=== PATIENT | male | born 1975 | race Caucasian/White ===

== ENCOUNTER 2016-03-16 04:57 | Emergency (ER) | payer MEDICAID ==
[2016-03-16] MEDS ORDERED: HYDROmorphONE/DILAUDID 1 MG/ML SYR ONE (05:17)
[2016-03-16] MEDS ORDERED: ONDANSETRON 4 MG/2 ML VIAL ONE (05:17)
[2016-03-16] MEDS ORDERED: ONDANSETRON 4 MG/2 ML VIAL IVP ONE (05:23)
[2016-03-16] MEDS ORDERED: HYDROmorphONE/DILAUDID 1 MG/ML SYR IVP ONE (05:23)
[2016-03-16] MEDS ORDERED: NS 1,000 ML IV ONE ×2 (05:24→05:47)
[2016-03-16 05:34] LABS: % IMMATURE GRANULYOCYTES 0.1 % (0.0-1.1); ABSOLUTE IMMATURE GRANULOCYTES 0.01 10^3/uL (0.00-0.10); ADD DIFF? NO; ADD MORPH? NO; ADD SCAN? NO; ATYPICAL LYMPHOCYTE FLAG 10 (0-99); FRAGMENT RBC FLAG 0 (0-99); HEMATOCRIT 47.9 % (40.0-51.0); HEMOGLOBIN 17.2 g/dL (13.7-17.5); LEFT SHIFT FLG 0 (0-99); LIPEMIA HEMOLYSIS FLAG 90 (0-99); MEAN CELL HEMOGLOBIN CONCENTR. 35.9 g/dL (32.4-36.7); PLATELET CLUMPS FLAG 0 (0-99); PLATELET COUNT 150 10^3/uL (150-400); RED BLOOD CELL COUNT 5.38 10^6/uL (4.40-6.38)
[2016-03-16 05:46] LABS: ANION GAP 8 mEq/L (8-16); CALCIUM 9.5 mg/dL (8.5-10.4); CARBON DIOXIDE 27 mEq/l (22-31); CHLORIDE 107 mEq/L (97-110); CREATININE 0.9 mg/dL (0.7-1.3); GLOMERULAR FILTRATION RATE > 60; GLUCOSE 103 mg/dL (70-100); POTASSIUM 5.3 mEq/L (3.5-5.2); SODIUM 142 mEq/L (134-144)
[2016-03-16] MEDS ORDERED: HYDROmorphONE/DILAUDID 1 MG/ML SYR IVP PRN (05:47)
[2016-03-16] MEDS ORDERED: KETOROLAC 30 MG/1 ML SDV IVP ONE (05:47)
[2016-03-16 06:11] LABS: COLOR YELLOW; LEUKOCYTE ESTERASE,URINE NEGATIVE (NEGATIVE); NITRITE,URINE NEGATIVE (NEGATIVE)
--- NOTE | 2016-03-16 06:29 | EDPHY ---
H & P Stated Complaint: pt says he woke up with severe mid R back pain Time Seen by Provider: 03/16/16 05:41 HPI/ROS: HPI The patient presents with right-sided back pain which awoke him from sleep tonight. The pain is sharp, radiates forward to his abdomen, and is moderate in severity. He has no prior history of similar. He does not have any dysuria , hematuria that he is aware of. He has not had any fevers or chills. 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 REVIEW OF SYSTEMS Constitutional: No fever, no chills. Eyes: No discharge. ENT: No sore throat. Cardiovascular: No chest pain, no palpitations. Respiratory: No cough, no shortness of breath. Gastrointestinal: No abdominal pain, no vomiting. Genitourinary: No hematuria. Musculoskeletal: Right-sided flank pain Skin: No rashes. Neurological: No headache. 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, smoking history PHYSICAL General Appearance: Alert, no distress Eyes: Pupils equal and round no pallor or injection ENT, Mouth: Mucous membranes moist Respiratory: There are no retractions, lungs are clear to auscultation Cardiovascular: Regular rate and rhythm Gastrointestinal: Abdomen is soft and non-tender, no masses, bowel sounds normal Back: No flank tenderness, no posterior midline tenderness Neurological: A&O, moves all extremities Skin: Warm and dry, no rashes Musculoskeletal: Neck is supple non tender Extremities: symmetrical, full range of motion Psychiatric: Patient is oriented X 3, there is no agitation Source: Patient Exam Limitations: No limitations - Medical/Surgical History Hx Asthma: No Hx Chronic Respiratory Disease: No Hx Diabetes: No Hx Cardiac Disease: No Hx Renal Disease: No Hx Cirrhosis: No Hx Alcoholism: No Hx HIV/AIDS: No Hx Splenectomy or Spleen Trauma: No Other PMH: PMH- HEP C, adhd, bipolar. PSH- DEYVI - Social History Smoking Status: Current every day smoker Constitutional: Initial Vital Signs Temperature (C) 36.7 C 03/16/16 05:01 Heart Rate 86 03/16/16 05:01 Respiratory Rate 20 03/16/16 05:01 Blood Pressure 111/99 H 03/16/16 05:01 O2 Sat (%) 97 03/16/16 05:01 O2 Delivery Mode Room Air Allergies/Adverse Reactions: No Known Allergies Allergy (Verified 03/16/16 05:03) Home Medications: Medication Instructions Recorded Hydrocodone/APAP 5/325 [Shadyside 1 tab PO Q4 PRN #15 tab 10/24/13 5/325 (RX)] oxyCODONE/APAP 5/325 [Percocet 1 tab PO Q6 #10 tab 06/02/14 5/325] ADDERALL 15 MG TABLET 03/16/16 LaMICtal 03/16/16 Medical Decision Making - Diagnostics Imaging: CT scan abdomen pelvis without contrast demonstrates mild fat stranding around the right kidney with no signs of kidney stone, discussed with Dr. Longo of Radiology. ED Course/Re-evaluation: The patient was given 2 L of IV fluid, Dilaudid, Toradol with complete resolution of his symptoms and felt much better. Labs have resulted and are all unremarkable including UA. CT scan performed shows no kidney stone with mild stranding around his right kidney. He could have passed a kidney stone or have had musculoskeletal pain and I have explained this to him. He will be discharged from the emergency room with a pill pack for Shadyside and instructions for rest and ice. He should return to the emergency room if he is worse in any way. Differential Diagnosis: This is a 40-year-old male who is status post cholecystectomy who presents from home with several hours of right-sided flank pain which awoke him from sleep with no other symptoms. Differential diagnosis includes nephrolithiasis, pyelonephritis, less likely musculoskeletal pain. - Data Points Laboratory Results: Laboratory Results 03/16/16 05:15 03/16/16 05:15 03/16/16 03/16/16 05:57 05:15 WBC 7.62 10^3/uL (3.80-9.50) RBC 5.38 10^6/uL (4.40-6.38) Hgb 17.2 g/dL (13.7-17.5) Hct 47.9 % (40.0-51.0) MCV 89.0 fL (81.5-99.8) MCH 32.0 pg (27.9-34.1) MCHC 35.9 g/dL (32.4-36.7) RDW 12.0 % (11.5-15.2) Plt Count 150 10^3/uL (150-400) MPV 10.0 fL (8.7-11.7) Neut % (Auto) 61.7 % (39.3-74.2) Lymph % (Auto) 26.6 % (15.0-45.0) [place] % (Auto) 9.8 % (4.5-13.0) Eos % (Auto) 1.4 % (0.6-7.6) Baso % (Auto) 0.4 % (0.3-1.7) Nucleat RBC Rel Count 0.0 % (0.0-0.2) Absolute Neuts (auto) 4.69 10^3/uL (1.70-6.50) Absolute Lymphs (auto) 2.03 10^3/uL (1.00-3.00) Absolute Monos (auto) 0.75 10^3/uL (0.30-0.80) Absolute Eos (auto) 0.11 10^3/uL (0.03-0.40) Absolute Basos (auto) 0.03 10^3/uL (0.02-0.10) Absolute Nucleated RBC 0.00 10^3/uL (0-0.01) Immature Gran % 0.1 % (0.0-1.1) Immature Gran # 0.01 10^3/uL (0.00-0.10) Sodium 142 mEq/L (134-144) Potassium 5.3 H mEq/L (3.5-5.2) Chloride 107 mEq/L (97-110) Carbon Dioxide 27 mEq/l (22-31) Anion Gap 8 mEq/L (8-16) BUN 22 mg/dL (7-23) Creatinine 0.9 mg/dL (0.7-1.3) Estimated GFR > 60 Glucose 103 H mg/dL (70-100) Calcium 9.5 mg/dL (8.5-10.4) Urine Color YELLOW Urine Appearance CLEAR Urine pH 5.0 (5.0-7.5) Ur Specific [place] 1.012 (1.002-1.030) Urine Protein NEGATIVE (NEGATIVE) Urine Ketones NEGATIVE (NEGATIVE) Urine Blood NEGATIVE (NEGATIVE) Urine Nitrate NEGATIVE (NEGATIVE) Urine Bilirubin NEGATIVE (NEGATIVE) Urine Urobilinogen NEGATIVE EU (0.2-1.0) Ur Leukocyte Esterase NEGATIVE (NEGATIVE) Urine RBC 1-3 /hpf (0-3) Urine WBC 1-3 /hpf (0-3) Ur Epithelial Cells Not Reported Urine Glucose NEGATIVE (NEGATIVE) Medications Given: Discontinued Medications Acetaminophen/Hydrocodone Bitart (Shad[place]ide 5/325mg Prepack#6) 1 btl TAKEHOME EDNOW ONE Stop: 03/16/16 06:40 Last Admin: 03/16/16 06:49 Dose: 1 btl Hydromorphone HCl (Dilaudid) 1 mg IVP EDNOW ONE Stop: 03/16/16 05:24 Last Admin: 03/16/16 05:24 Dose: 1 mg Hydromorphone HCl (Dilaudid) 1 mg IVP Q4 PRN PRN Reason: Pain, Severe Unable to Take PO Stop: 03/26/16 05:46 Last Admin: 03/16/16 05:53 Dose: 1 mg Sodium Chloride (Ns) 1,000 mls @ 0 mls/hr IV ONCE ONE PRN Reason: Wide Open Stop: 03/16/16 05:25 Last Admin: 03/16/16 05:24 Dose: 1,000 mls Sodium Chloride (Ns) 1,000 mls @ 0 mls/hr IV ONCE ONE PRN Reason: Wide Open Stop: 03/16/16 05:48 Last Admin: 03/16/16 05:53 Dose: 1,000 mls Ketorolac Tromethamine (Toradol) 30 mg IVP EDNOW ONE Stop: 03/16/16 05:48 Last Admin: 03/16/16 05:53 Dose: 30 mg Ondansetron HCl (Zofran) 4 mg IVP EDNOW ONE Stop: 03/16/16 05:24 Last Admin: 03/16/16 05:24 Dose: 4 mg Departure - Departure Disposition: Home, Routine, Self-Care Clinical Impression: Right flank pain Condition: Good Instructions: Hydrocodone/Acetaminophen (By mouth), Flank Pain (ED) Additional Instructions: Please make sure to drink plenty of fluids. You should return to the emergency room if your worse in any way. You should follow up with your regular doctor if the pain continues. Referrals: Nadeem Almendarez MD [Primary Care Provider] - As per Instructions
[2016-03-16] MEDS ORDERED: HYDROCOD/APAP 5/325 PREPACK#6 BTL TAKEHOME ONE (06:39)
[2016-03-16 06:51] VITALS: BP 122/74; PULSE 66; RESP 16; TEMP 96.6; O2SAT 96
--- NOTE | 2016-03-16 09:44 | CT ---
CT Scan of the Urinary Tract (Abdomen and Pelvis Without Contrast) Indication: Right flank pain. Technique: Multidetector helical CT imaging was performed from the kidneys to the urinary bladder wi thout contrast. Dose reduction techniques were utilized. Comparison: Complete abdominal ultrasound dated July 07, 2014. Findings: No nephrolithiasis, ureteral calculi, bladder stones, or hydroureteronephrosis. Equivocal p erinephric stranding is present on the right. No free fluid, lymphadenopathy, mass or pneumoperitoneu m. The bowel pattern is normal with the exception of mild constipation. The appendix is normal. A 1-cm fuzzy subpleural nodule resides in the right lower lobe on image 4 of series 3. The lung bases are otherwise clear. No pleural effusion. Heart size normal. Abdominal aorta normal caliber with min imal calcified plaque along the right common iliac artery. The gallbladder is surgically absent. The liver, spleen, pancreas, adrenal glands, urinary bladder, a nd prostate gland are normal. No bone lesions. Mild degenerative disk disease is present at L1-L2. Impression: 1. No hydronephrosis or ureteral calculi. 2. Subtle asymmetric right perinephric edema may be a manifestation of recently passed calculus or py elonephritis. Please correlate with urinary analysis. 3. Normal appendix. No free fluid or other localized intraabdominal process. The study was performed as an emergency on-call case and discussed by telephone with Dr. Seals at 6 :20 a.m. The final interpretation is concordant with the original communication. Attention: This CT examination is specifically designed to evaluate patients who are clinically susp ected of having acute obstructive uropathy. This examination does not use radiographic contrast, and as such, provides only a limited evaluation of the abdomen, pelvis, and retroperitoneum. If there is further clinical suspicion for pathological conditions other than obstructive uropathy, a complete CT evaluation of the abdomen and pelvis utilizing intravenous, oral, and rectal contrast should be c onsidered.
== END 2016-03-16 06:51 | disposition home or self-care (01) ==
DX: R10.9 Unspecified abdominal pain (principal); F17.200 Nicotine dependence, unspecified, uncomplicated; Z90.49 Acquired absence of other specified parts of digestive tract
CPT/HCPCS: 96374; J1170; J1885; J2405

== ENCOUNTER → 2016-04-07 | Outpatient (CLI) | payer MEDICAID | LOC: FIMAGING 10:44 → EDSTATUS 10:45 | PROVIDERS: ATTEND Family Medicine | DX: J18.9 Pneumonia, unspecified organism (principal) ==

== ENCOUNTER 2016-10-28 21:02 | Emergency (ER) | payer MEDICAID ==
--- NOTE | 2016-10-28 22:31 | EDPHY ---
H & P Stated Complaint: RLQ abd pain AND thrush Time Seen by Provider: 10/28/16 22:24 HPI/ROS: Chief Complaint: Abdominal pain HPI: A 41-year-old male presenting with right lower quadrant abdominal pain for 1 day. Some diarrhea but no nausea or vomiting. No fevers or chills. Does not have a history of the same. Has been having some low back pain for the last week but this seems unrelated. Has a history of cholecystectomy about 4 years ago. Otherwise no other medical history. No urinary urgency or frequency. No hematuria that he is aware. Pain is worse with pressing on his abdomen and car rides. ROS: 10 point Review of Systems is negative except as noted in the HPI. PMH: Costochondritis, back pain, attention deficit hyperactivity disorder Medications: Adderall Allergies: None Social History: Positive smoking, no alcohol, medical marijuana Family History: non-contributory Physical Exam: Gen: Awake, Alert, No Distress HEENT: Nose: no rhinorrhea Eyes: PERRLA, EOMI Mouth: Moist mucosa Neck: Supple, no JVD Chest: nontender, lungs clear to auscultation Heart: S1, S2 normal, no murmur Abd: Soft, tenderness in the right lower quadrant with a positive Rovsing sign, no rebound, voluntary guarding Back: no CVA tenderness, no midline tenderness Ext: no edema, non-tender Skin: no rash Neuro: CN II-XII intact, Sensation grossly intact, Strength 5/5 in bilateral upper and lower extremities - Personal History Current Tetanus/Diphtheria Vaccine: Yes - Medical/Surgical History Hx Asthma: No Hx Chronic Respiratory Disease: No Hx Diabetes: No Hx Cardiac Disease: No Hx Renal Disease: No Hx Cirrhosis: No Hx Alcoholism: No Hx HIV/AIDS: No Hx Splenectomy or Spleen Trauma: No Other PMH: PMH- HEP C, adhd, bipolar, thrush. PSH- DEYVI - Social History Smoking Status: Current every day smoker Constitutional: Initial Vital Signs Temperature (C) 37.3 C 10/28/16 21:06 Heart Rate 112 H 10/28/16 21:06 Respiratory Rate 16 10/28/16 21:06 Blood Pressure 129/82 H 10/28/16 21:06 O2 Sat (%) 97 10/28/16 21:06 O2 Delivery Mode Room Air Allergies/Adverse Reactions: No Known Allergies Allergy (Verified 03/16/16 05:03) Home Medications: Medication Instructions Recorded ADDERALL 15 MG TABLET 03/16/16 Nystatin 100,000 unit PO DAILY 7 Days #1 10/29/16 oral.susp Medical Decision Making - Diagnostics Imaging Results: CT scan of the abdomen and pelvis shows a normal appendix and is read as a normal study by Dr. Gutierrez. Imaging: Discussed imaging studies w/ hearing healthcare practitioner Radiologist ED Course/Re-evaluation: 41-year-old male with right lower quadrant pain. Urinalysis is negative. Blood work is entirely normal including a normal CBC, chemistry, LFTs, lipase. CT scan abdomen pelvis shows a normal appendix is otherwise normal. Patient is improved on re-examination after Toradol. Symptoms consistent with musculoskeletal pain as he had an exacerbation of back pain last week. He is completely neurologically intact. No red flags for acute cauda equina syndrome. Plan will be to discharge continuing anti-inflammatories. I have also suggested he could try Lidoderm patch if those are not successful. He has an appoint with his primary care physician in 7 days. - Data Points Laboratory Results: Laboratory Results 10/28/16 22:20 10/28/16 22:20 10/28/16 10/28/16 10/28/16 23:11 22:20 22:20 WBC 6.34 10^3/uL 10^3/uL (3.80-9.50) RBC 5.17 10^6/uL 10^6/uL (4.40-6.38) Hgb 16.6 g/dL g/dL (13.7-17.5) Hct 46.1 % % (40.0-51.0) MCV 89.2 fL fL (81.5-99.8) MCH 32.1 pg pg (27.9-34.1) MCHC 36.0 g/dL g/dL (32.4-36.7) RDW 11.9 % % (11.5-15.2) Plt Count 130 10^3/uL L 10^3/uL (150-400) MPV 10.6 fL fL (8.7-11.7) Neut % (Auto) 59.7 % % (39.3-74.2) Lymph % (Auto) 30.9 % % (15.0-45.0) [place] % (Auto) 7.7 % % (4.5-13.0) Eos % (Auto) 0.9 % % (0.6-7.6) Baso % (Auto) 0.6 % % (0.3-1.7) Nucleat RBC Rel Count 0.0 % % (0.0-0.2) Absolute Neuts (auto) 3.78 10^3/uL 10^3/uL (1.70-6.50) Absolute Lymphs (auto) 1.96 10^3/uL 10^3/uL (1.00-3.00) Absolute Monos (auto) 0.49 10^3/uL 10^3/uL (0.30-0.80) Absolute Eos (auto) 0.06 10^3/uL 10^3/uL (0.03-0.40) Absolute Basos (auto) 0.04 10^3/uL 10^3/uL (0.02-0.10) Absolute Nucleated RBC 0.00 10^3/uL 10^3/uL (0-0.01) Immature Gran % 0.2 % % (0.0-1.1) Immature Gran # 0.01 10^3/uL 10^3/uL (0.00-0.10) Sodium 137 mEq/L mEq/L (134-144) Potassium 4.6 mEq/L mEq/L (3.5-5.2) Chloride 103 mEq/L mEq/L (97-110) Carbon Dioxide 24 mEq/l mEq/l (22-31) Anion Gap 10 mEq/L mEq/L (8-16) BUN 15 mg/dL mg/dL (7-23) Creatinine 0.9 mg/dL mg/dL (0.7-1.3) Estimated GFR > 60 Glucose 87 mg/dL mg/dL (70-100) Calcium 9.7 mg/dL mg/dL (8.5-10.4) Total Bilirubin 0.5 mg/dL mg/dL (0.1-1.4) Conjugated Bilirubin 0.4 mg/dL mg/dL (0.0-0.5) Unconjugated Bilirubin 0.1 mg/dL mg/dL (0.0-1.1) AST 77 IU/L H IU/L (17-59) ALT 119 IU/L H IU/L (21-72) Alkaline Phosphatase 49 IU/L IU/L (38-126) Total Protein 7.9 g/dL g/dL (6.3-8.2) Albumin 4.5 g/dL g/dL (3.5-5.0) Lipase 181 IU/L IU/L (23-300) Urine Color PALE YELLOW Urine Appearance CLEAR Urine pH 6.0 (5.0-7.5) Ur Specific [place] 1.008 (1.002-1.030) Urine Protein NEGATIVE (NEGATIVE) Urine Ketones NEGATIVE (NEGATIVE) Urine Blood NEGATIVE (NEGATIVE) Urine Nitrate NEGATIVE (NEGATIVE) Urine Bilirubin NEGATIVE (NEGATIVE) Urine Urobilinogen NEGATIVE EU EU (0.2-1.0) Ur Leukocyte Esterase NEGATIVE (NEGATIVE) Urine Glucose NEGATIVE (NEGATIVE) Medications Given: Discontinued Medications Ketorolac Tromethamine (Toradol) 15 mg IVP EDNOW ONE Stop: 10/28/16 23:46 Last Admin: 10/28/16 23:51 Dose: 15 mg Departure - Departure Disposition: Home, Routine, Self-Care Clinical Impression: Abdominal pain Condition: Good Instructions: Musculoskeletal Pain (ED) Additional Instructions: I recommend ibuprofen as needed for your musculoskeletal pain. You may use a Lidoderm patch if the ibuprofen does not control your pain, these are available [id number]. Follow up with her primary care physician as scheduled. Return to the emergency depart for increasing pain, fevers, chills, nausea, vomiting, or any other concerns. Referrals: Nadeem Almendarez MD [Primary Care Provider] - As per Instructions Prescriptions: Nystatin 100,000 unit PO DAILY 7 Days #1 oral.susp
[2016-10-28 22:44] LABS: % IMMATURE GRANULYOCYTES 0.2 % (0.0-1.1); ABSOLUTE IMMATURE GRANULOCYTES 0.01 10^3/uL (0.00-0.10); ADD DIFF? NO; ADD MORPH? NO; ADD SCAN? NO; ATYPICAL LYMPHOCYTE FLAG 0 (0-99); FRAGMENT RBC FLAG 0 (0-99); HEMATOCRIT 46.1 % (40.0-51.0); HEMOGLOBIN 16.6 g/dL (13.7-17.5); LEFT SHIFT FLG 0 (0-99); LIPEMIA HEMOLYSIS FLAG 90 (0-99); MEAN CELL HEMOGLOBIN 32.1 pg (27.9-34.1); MEAN CELL VOLUME 89.2 fL (81.5-99.8); MEAN PLATELET VOLUME 10.6 fL (8.7-11.7); PLATELET CLUMPS FLAG 0 (0-99); PLATELET COUNT 130 10^3/uL (150-400); RED BLOOD CELL COUNT 5.17 10^6/uL (4.40-6.38); RED CELL DISTRIBUTION WIDTH 11.9 % (11.5-15.2)
[2016-10-28 22:54] LABS: ALANINE AMINOTRANSFERASE 119 IU/L (21-72); ALBUMIN 4.5 g/dL (3.5-5.0); ALKALINE PHOSPHATASE 49 IU/L (38-126); ANION GAP 10 mEq/L (8-16); ASPARTATE AMINOTRANSFERASE 77 IU/L (17-59); BILIRUBIN,TOTAL 0.5 mg/dL (0.1-1.4); BILIRUBIN-CONJUGATED 0.4 mg/dL (0.0-0.5); BILIRUBIN-UNCONJUGATED 0.1 mg/dL (0.0-1.1); CALCIUM 9.7 mg/dL (8.5-10.4); CARBON DIOXIDE 24 mEq/l (22-31); CHLORIDE 103 mEq/L (97-110); CREATININE 0.9 mg/dL (0.7-1.3); GLOMERULAR FILTRATION RATE > 60; GLUCOSE 87 mg/dL (70-100); POTASSIUM 4.6 mEq/L (3.5-5.2); SODIUM 137 mEq/L (134-144); TOTAL PROTEIN 7.9 g/dL (6.3-8.2)
[2016-10-28] MEDS ORDERED: IOPAMIDOL (ISOVUE-300) 100 ML BTL ONE (23:01)
[2016-10-28 23:20] LABS: COLOR PALE YELLOW; LEUKOCYTE ESTERASE,URINE NEGATIVE (NEGATIVE); NITRITE,URINE NEGATIVE (NEGATIVE)
[2016-10-28] MEDS ORDERED: KETOROLAC 15 MG/1 ML SDV ONE (23:44)
[2016-10-28] MEDS ORDERED: KETOROLAC 15 MG/1 ML SDV IVP ONE (23:45)
[2016-10-29 00:17] VITALS: BP 135/80; PULSE 80; RESP 18; TEMP 97.9; O2SAT 98
== END 2016-10-29 00:17 | disposition home or self-care (01) ==
DX: R10.31 Right lower quadrant pain (principal); F17.200 Nicotine dependence, unspecified, uncomplicated
CPT/HCPCS: 96374; J1885; Q9967

== ENCOUNTER 2017-03-30 15:40 | Emergency (ER) | payer MEDICAID ==
[2017-03-30 15:58] VITALS: TEMP 98.4
[2017-03-30] MEDS ORDERED: LORazepam 2 MG/ML INJ IVP ONE ×2 (15:59→16:13)
[2017-03-30] MEDS ORDERED: NS 1,000 ML IV ONE ×2 (16:00→16:22)
--- NOTE | 2017-03-30 16:07 | EDPHY ---
H & P Stated Complaint: CI, meth abuse - Personal History Current Tetanus/Diphtheria Vaccine: Unsure Current Tetanus Diphtheria and Acellular Pertussis (TDAP): Unsure - Medical/Surgical History Hx Asthma: No Hx Chronic Respiratory Disease: No Hx Diabetes: No Hx Cardiac Disease: No Hx Renal Disease: No Hx Cirrhosis: No Hx Alcoholism: No Hx HIV/AIDS: No Hx Splenectomy or Spleen Trauma: No Other PMH: PMH- HEP C, adhd, bipolar, thrush. PSH- DEYVI - Social History Smoking Status: Current every day smoker Time Seen by Provider: 03/30/17 16:00 HPI/ROS: CHIEF COMPLAINT: "I'm tweaking hard " HISTORY OF PRESENT ILLNESS: 41-year-old male arrives by ambulance after IV methamphetamine use "I'm tweaking hard, I think I'm dying ". States that he injected 1 g of methamphetamine and his called 911 because he was acutely agitated. Denies alcohol use. Denies suicidal homicidal ideation. Denies hallucination. REVIEW OF SYSTEMS: A ten point review of systems was performed and is negative with the exception of the items mentioned in the HPI PAST MEDICAL & SURGICAL HISTORY: No pertinent medical or surgical history SOCIAL HISTORY: Positive for IV methamphetamine use PHYSICAL EXAM (Prior to examination, patient consented to physical exam, hands were washed and my usual and customary physical exam procedures followed) 1) GENERAL: poorly kept, agitated, cannot sit still in the bed, anxious, rambling, flight of ideas. 2) HEAD: Normocephalic, atraumatic 3) HEENT: Pupils equal, round, reactive to light bilaterally. Sclera anicteric. 4) NECK: Full range of motion, no meningeal signs. 5) LUNGS: Clear auscultation bilaterally, no wheezes, no rhonchi, no retractions. 6) HEART: Regular rate and rhythm, no murmur, no heave, no gallop. 7) ABDOMEN: No guarding, no rebound, no focal tenderness 8) MUSCULOSKELETAL: No peripheral edema or discoloration. 9) BACK:, no obvious trauma, no visual or palpable abnormality. 10) SKIN: No rash, no petechiae. 11) Psychiatric: Patient is oriented X 3, there is no agitation. DIFFERENTIAL DIAGNOSIS: In no particular orderincluding but not limited to hypoglycemia, infectious process, electrolyte abnormality, head injury and intoxicants. ([place]) Constitutional: Initial Vital Signs Temperature (C) 36.9 C 03/30/17 15:56 Heart Rate 147 H 03/30/17 15:56 Respiratory Rate 24 H 03/30/17 15:56 Blood Pressure 145/96 H 03/30/17 15:56 O2 Sat (%) 94 03/30/17 15:56 O2 Delivery Mode Room Air O2 (L/minute) 2 Allergies/Adverse Reactions: No Known Allergies Allergy (Verified 03/30/17 15:56) Home Medications: Medication Instructions Recorded ADDERALL 15 MG TABLET 03/16/16 Medical Decision Making ED Course/Re-evaluation: 4:14 p.m.: This patient is acutely agitated. He will be given benzodiazepine, IV fluid, observed. He is currently tachycardic, agitated. Patient denies suicidal or homicidal ideation. 4:23 p.m.: Patient is sleeping. 5:00 p.m. Care turned over to Dr. Demar Linares. Patient remains tachycardic, noted to have BUN creatinine ratio of 22. Suspect volume depletion. He will be given IV hydration and observed in the emergency department ([place]) 5:30 p.m. the patient is sitting in the hallway in his got dressed. He is refusing further care and wishes to leave AMA. And he did ask for resources from case management for recovery. This was given. (Demar Linares) - Data Points Laboratory Results: Laboratory Results 03/30/17 15:55 03/30/17 15:55 03/30/17 03/30/17 15:55 15:55 WBC 7.69 10^3/uL 10^3/uL (3.80-9.50) RBC 4.94 10^6/uL 10^6/uL (4.40-6.38) Hgb 15.5 g/dL g/dL (13.7-17.5) Hct 44.1 % % (40.0-51.0) MCV 89.3 fL fL (81.5-99.8) MCH 31.4 pg pg (27.9-34.1) MCHC 35.1 g/dL g/dL (32.4-36.7) RDW 11.9 % % (11.5-15.2) Plt Count 123 10^3/uL L 10^3/uL (150-400) MPV 9.7 fL fL (8.7-11.7) Neut % (Auto) 69.7 % % (39.3-74.2) Lymph % (Auto) 19.1 % % (15.0-45.0) [place] % (Auto) 9.5 % % (4.5-13.0) Eos % (Auto) 0.8 % % (0.6-7.6) Baso % (Auto) 0.5 % % (0.3-1.7) Nucleat RBC Rel Count 0.0 % % (0.0-0.2) Absolute Neuts (auto) 5.36 10^3/uL 10^3/uL (1.70-6.50) Absolute Lymphs (auto) 1.47 10^3/uL 10^3/uL (1.00-3.00) Absolute Monos (auto) 0.73 10^3/uL 10^3/uL (0.30-0.80) Absolute Eos (auto) 0.06 10^3/uL 10^3/uL (0.03-0.40) Absolute Basos (auto) 0.04 10^3/uL 10^3/uL (0.02-0.10) Absolute Nucleated RBC 0.00 10^3/uL 10^3/uL (0-0.01) Immature Gran % 0.4 % % (0.0-1.1) Immature Gran # 0.03 10^3/uL 10^3/uL (0.00-0.10) Sodium 139 mEq/L mEq/L (135-145) Potassium 3.8 mEq/L mEq/L (3.5-5.2) Chloride 103 mEq/L mEq/L (97-110) Carbon Dioxide 23 mEq/l mEq/l (22-31) Anion Gap 13 mEq/L mEq/L (8-16) BUN 25 mg/dL H mg/dL (7-23) Creatinine 1.1 mg/dL mg/dL (0.7-1.3) Estimated GFR > 60 Glucose 135 mg/dL H mg/dL (70-100) Calcium 9.2 mg/dL mg/dL (8.5-10.4) Creatine Kinase 189 IU/L IU/L (0-224) Ethyl Alcohol < 10 mg/dL mg/dL (0-10) Medications Given: Discontinued Medications Sodium Chloride (Ns) 1,000 mls @ 0 mls/hr IV ONCE ONE PRN Reason: Wide Open Stop: 03/30/17 16:01 Last Admin: 03/30/17 16:06 Dose: 1,000 mls Sodium Chloride (Ns) 1,000 mls @ 0 mls/hr IV ONCE ONE PRN Reason: Wide Open Stop: 03/30/17 16:23 Last Admin: 03/30/17 16:28 Dose: 1,000 mls Lorazepam (Ativan Injection) 2 mg IVP EDNOW ONE Stop: 03/30/17 16:00 Last Admin: 03/30/17 16:06 Dose: 2 mg Lorazepam (Ativan Injection) 1 mg IVP EDNOW ONE Stop: 03/30/17 16:14 Last Admin: 03/30/17 17:28 Dose: Not Given Departure - Departure Disposition: Against Medical Advice Clinical Impression: Methamphetamine abuse, Volume depletion Condition: Good Instructions: Methamphetamine Abuse (ED) Additional Instructions: Do not use methamphetamine or illegal drugs in the future. Referrals: [facility],. [Clinic] - As per Instructions
[2017-03-30 16:14] LABS: PLATELET COUNT 123 10^3/uL (150-400)
[2017-03-30 16:21] LABS: CREATINE KINASE 189 IU/L (0-224)
[2017-03-30 16:56] VITALS: BP 112/63; PULSE 122; RESP 22; O2SAT 97
--- NOTE | 2017-03-30 18:10 | ASDISCHSUM ---
Discharge Information Plan Status:Substance Abuse Referrals Medically Cleared to Leave: Discharge Date: CM D/C Disposition:Against Medical Advice ADT D/C Disposition:Against Medical Advice Projected Discharge Date: Transportation at D/C:None or Unknown Discharge Delay Reason: Follow-Up Date: Discharge Slot: Final Diagnosis: Placement Information Patient Contact Information Contact Name:KAREN Relationship: Address:[address] [place] [address] City:[place] Alternate Phone: State/Zip Code:[place] [address] Email: Financial Information Financial Class:Medicaid Primary Plan Desc:MEDICA[employer] HE[employer] Primary Plan Number:[id number] Secondary Plan Desc: Secondary Plan Number: Assessment Information [facility] CM Progress Note CM Note CM Note Notes: Patient requesting resources to help him quit meth. Patient provided a list of substance abuse resources that accept Medicaid. CM available for further assistance if needed. Date Signed: 03/30/2017 06:08 PM Electronically Signed By:Paula Travis RN LACE LACE Acuity / Level of Answers: No Care: Did the patient have an inpatient admission? # of Emergency department Answers: 1-2 visits in the last 6 months Social determinants Answers: History of substance abuse (ETOH, street drugs, prescription drugs, etc.) Score: 4 Date Signed: 03/30/2017 06:09 PM Electronically Signed By:Paula Travis RN Intervention Information Intervention Type:Substance Abuse Treatment Date of Service:03/30/2017 06:09 PM Patient Type:Emergency Room Staff Member:STEPHY Travis Sharon Hours:0.25 Discipline:Verification Clerk Severity: Comment:resource list provided for substance a buse treatment
== END 2017-03-30 18:17 | disposition left against medical advice (07) ==
LOC: EDUNIT#
DX: F15.10 Other stimulant abuse, uncomplicated (principal); E86.9 Volume depletion, unspecified; F17.200 Nicotine dependence, unspecified, uncomplicated
CPT/HCPCS: 96374; G0480; J2060

== ENCOUNTER 2017-05-19 17:49 | Emergency (ER) | payer MEDICAID ==
[2017-05-19] MEDS ORDERED: LORazepam 2 MG/ML INJ IVP ONE (17:58)
[2017-05-19] MEDS ORDERED: NS 1,000 ML IV ONE (17:58)
--- NOTE | 2017-05-19 18:01 | EDPHY ---
H & P Smoking Status: Current every day smoker Time Seen by Provider: 05/19/17 17:50 HPI/ROS: CHIEF COMPLAINT: Chest pain, methamphetamine abuse HISTORY OF PRESENT ILLNESS: 41-year-old male presents to the emergency department by ambulance complaining of chest pain after injecting meth 2 or 3 hr prior to arrival. Patient has been abusing methamphetamines intermittently especially over last 2-3 weeks. He would like to stop using drugs. He has also been using his Adderall that is prescribed hip and states that he has " been abusing this". He began having chest pain and felt like he was going to pass out and called 911 and was transported to the hospital. EMS stated that he was extremely anxious and he was given 5 mg of IV Valium. Patient denies nausea or vomiting. He does not feel short of breath. He does complain of a headache. No reported trauma. REVIEW OF SYSTEMS: Constitutional: No fever, no chills. Eyes: No double or blurry vision. ENT: No sore throat. Respiratory: No cough, no shortness of breath. Cardiac: chest pain. Gastrointestinal: No abdominal pain, vomiting or diarrhea. Genitourinary: No dysuria. Musculoskeletal: No neck or back pain. Skin: No rashes. Neurological: No headache. (Renu Gainesa Majo) Past Medical/Surgical History: Substance abuse (Tiffanie Gaines M) Social History: and lives in [place] (Tiffanie Gaines M) Physical Exam: General Appearance: Alert, very anxious. 171/109, heart rate 127, 97% on room air. No visible signs of trauma to his head. Eyes: Pupils equal and round. Extraocular motions are all intact. ENT: Mouth: Mucous membranes moist. Respiratory: No wheezing, rhonchi, or rales, lungs are clear to auscultation. Cardiovascular: Regular rate and rhythm. Tachycardic. Gastrointestinal: Abdomen is soft and nontender, no masses, no rebound or guarding, bowel sounds normal. Neurological: Alert and oriented x 3, cranial nerves II through XII grossly intact Skin: Warm and dry, no rashes. Musculoskeletal: Nontender to palpate along the cervical, thoracic or lumbar spine. Neck is supple. Extremities: Full range of motion and no peripheral edema. Psychiatric: Patient is oriented X 3, there is no agitation. (Rosin,Tiffanie M) Constitutional: Initial Vital Signs Temperature (C) 37.3 C 05/19/17 17:58 Heart Rate 127 H 05/19/17 17:58 Respiratory Rate 28 H 05/19/17 17:58 Blood Pressure 171/109 H 05/19/17 17:58 O2 Sat (%) 97 05/19/17 17:58 O2 Delivery Mode Room Air Allergies/Adverse Reactions: No Known Allergies Allergy (Verified 05/19/17 18:00) Home Medications: Medication Instructions Recorded ADDERALL 15 MG TABLET 03/16/16 Medical Decision Making ED Course/Re-evaluation: 41-year-old male presents to the emergency department after using methamphetamines and complaining of pain in feeling extremely anxious. Patient was given Valium prior to arrival. He was given IV Ativan and IV normal saline in the emergency department. Laboratory studies were all within normal limits. EKG reveals normal sinus rhythm. The case was discussed with Dr. Rios Gonzalez, secondary supervising physician, who did not directly evaluate the patient but agrees with treatment and plan. ( Tiffanie Gaines) I did not see this patient while he was in the emergency department. However his care was discussed with the PA while the patient was in the department. I agree with treatment plan and management (Rios Gonzalez) Differential Diagnosis: Chest pain including but not limited to myocardial ischemia, pulmonary embolus, chest wall pain, pleural inflammation and pulmonary infectious causes. (Tiffanie Gaines) - Data Points Laboratory Results: Laboratory Results 05/19/17 17:50 05/19/17 17:50 Medications Given: Discontinued Medications Sodium Chloride (Ns) 1,000 mls @ 0 mls/hr IV ONCE ONE PRN Reason: Wide Open Stop: 05/19/17 17:59 Last Admin: 05/19/17 18:33 Dose: 1,000 mls Lorazepam (Ativan Injection) 1 mg IVP EDNOW ONE Stop: 05/19/17 17:59 Last Admin: 05/19/17 18:34 Dose: 1 mg Departure - Departure Disposition: Home, Routine, Self-Care Clinical Impression: Methamphetamine abuse Condition: Good Instructions: Methamphetamine Abuse (ED) Additional Instructions: Return to the emergency department if you developed recurring headache, chest pain, or if you feel worse in any way. Referrals: [facility] [Outside] - As per Instructions Tad Snyder MD [[facility] [place] Primary Care Provider] - As per Instructions (Primary care provider Th[place])
[2017-05-19 18:04] LABS: PLATELET COUNT 168 10^3/uL (150-400)
[2017-05-19 18:42] VITALS: RESP 18
--- NOTE | 2017-05-19 18:47 | CPEKG ---
Heart Rate: 113 RR Interval: 531 P-R Interval: 156 QRSD Interval: 94 QT Interval: 332 QTC Interval: 456 P [place]: 77 QRS [place]: 48 T Wave [place]: 73 EKG Severity - BORDERLINE ECG - EKG Impression: SINUS TACHYCARDIA EKG Impression: ABNRM R PROG, CONSIDER ASMI OR LEAD PLACEMENT Electronically Signed By: Bayron Giron 20-May-2017 11:23:34
[2017-05-19 20:01] VITALS: BP 135/97; PULSE 100; TEMP 97.9; O2SAT 95
== END 2017-05-19 19:59 | disposition home or self-care (01) ==
LOC: EDUNIT#
DX: F15.10 Other stimulant abuse, uncomplicated (principal); F17.200 Nicotine dependence, unspecified, uncomplicated
CPT/HCPCS: 96374; J2060

== ENCOUNTER 2017-06-22 12:58 | Emergency (ER) | payer MEDICAID ==
--- NOTE | 2017-06-22 13:27 | CPEKG ---
Heart Rate: 116 RR Interval: 517 P-R Interval: 148 QRSD Interval: 98 QT Interval: 324 QTC Interval: 451 P [place]: 69 QRS [place]: 49 T Wave [place]: 73 EKG Severity - ABNORMAL ECG - EKG Impression: SINUS TACHYCARDIA EKG Impression: PROBABLE INFERIOR INFARCT, OLD EKG Impression: PROBABLE ANTEROLATERAL INFARCT, OLD Electronically Signed By: Audrey Ragland 22-Jun-2017 21:32:12
[2017-06-22] MEDS ORDERED: ASPIRIN 81 MG CHEWABLE TAB PO ONE (13:48)
[2017-06-22] MEDS ORDERED: LORazepam 2 MG/ML INJ IVP ONE (13:49)
--- NOTE | 2017-06-22 13:52 | EDPHY ---
H & P Stated Complaint: Meth Withdrawal, Chest Pain Time Seen by Provider: 06/22/17 13:25 HPI/ROS: CHIEF COMPLAINT: Chest pain HISTORY OF PRESENT ILLNESS: 41-year-old male presents with chest pain. He was doing moderate activity at work when he developed left-sided chest discomfort at noon. The chest discomfort is moderate and constant. The cp gradually spread to his entire chest. Associated with anxiety. He is a methamphetamine abuser and last used methamphetamine yesterday. He took an Adderall this morning and the symptoms started after Adderall. He has had these symptoms in the past and usually lays down, takes an aspirin and Ativan of the symptoms resolved. Cardiac risk factors positive for family history (father of [place] at 52yo) and smoking. No hypertension, diabetes or hypercholesterolemia. REVIEW OF SYSTEMS: complete 10 point ROS negative except at noted in the HPI - Personal History Current Tetanus Diphtheria and Acellular Pertussis (TDAP): Yes - Medical/Surgical History Hx Asthma: No Hx Chronic Respiratory Disease: No Hx Diabetes: No Hx Cardiac Disease: No Hx Renal Disease: No Hx Cirrhosis: No Hx Alcoholism: No Hx HIV/AIDS: No Hx Splenectomy or Spleen Trauma: No Other PMH: PMH- HEP C, adhd, bipolar, thrush. PSH- DEYVI. Meth Abuse - Social History Smoking Status: Current every day smoker - Physical Exam Exam: General Appearance: Alert, pleasant Eyes: Pupils equal and round, no conjunctival pallor or injection ENT, Mouth: Mucous membranes moist Neck: Normal inspection Respiratory: Lungs are clear to auscultation Cardiovascular: Regular tachycardia Gastrointestinal: Abdomen is soft, left upper quadrant tenderness Neurological: A&O, nonfocal, normal gait Skin: Warm and dry, no rash Extremities: Nontender, no pedal edema Psychiatric: Anxious Constitutional: Initial Vital Signs Heart Rate 118 H 06/22/17 13:02 Respiratory Rate 18 06/22/17 13:02 Blood Pressure 167/102 H 06/22/17 13:02 O2 Sat (%) 98 06/22/17 13:02 O2 Delivery Mode Room Air Allergies/Adverse Reactions: No Known Allergies Allergy (Verified 05/19/17 18:00) Home Medications: Medication Instructions Recorded ADDERALL 15 MG TABLET 03/16/16 Medical Decision Making - Diagnostics EKG Interpretation: EKG interpreted by me reveals sinus tachycardia, rate 116, inferior Q-waves, poor R-wave progression. Imaging Results: Imaging Impressions Chest X-Ray 06/22/17 13:48 Impression: Clear lungs. No acute process. Chest x-ray independently reviewed by me reveals no acute disease. ED Course/Re-evaluation: This patient presents with chest pain. stat EKG reveals sinus tachycardia; no evidence of ischemia or dysrhythmia. Cardiac risk factors include smoking and family history. Aspirin and Ativan 1 mg IV given at patient request. Laboratory and chest x-ray results discussed with the patient. He feels better after IV Ativan and aspirin, but continues have a vague chest discomfort. I advised him to be admitted for cardiac evaluation. However he refuses. He clearly understands the risk and benefits of admission and is a competent decision maker. His is present and agrees with his decision. Signed out AMA. Differential Diagnosis: Differential diagnosis includes though it is not limited to pneumonia, pneumothorax, pulmonary embolism, aortic dissection, pericarditis, acute coronary syndrome. - Data Points Laboratory Results: Laboratory Results 06/22/17 13:58 06/22/17 13:58 06/22/17 06/22/17 13:58 13:58 WBC 6.79 10^3/uL 10^3/uL (3.80-9.50) RBC 5.40 10^6/uL 10^6/uL (4.40-6.38) Hgb 16.7 g/dL g/dL (13.7-17.5) Hct 46.1 % % (40.0-51.0) MCV 85.4 fL fL (81.5-99.8) MCH 30.9 pg pg (27.9-34.1) MCHC 36.2 g/dL g/dL (32.4-36.7) RDW 12.0 % % (11.5-15.2) Plt Count 153 10^3/uL 10^3/uL (150-400) MPV 9.5 fL fL (8.7-11.7) Neut % (Auto) 68.8 % % (39.3-74.2) Lymph % (Auto) 21.6 % % (15.0-45.0) [place] % (Auto) 8.2 % % (4.5-13.0) Eos % (Auto) 0.7 % % (0.6-7.6) Baso % (Auto) 0.6 % % (0.3-1.7) Nucleat RBC Rel Count 0.0 % % (0.0-0.2) Absolute Neuts (auto) 4.66 10^3/uL 10^3/uL (1.70-6.50) Absolute Lymphs (auto) 1.47 10^3/uL 10^3/uL (1.00-3.00) Absolute Monos (auto) 0.56 10^3/uL 10^3/uL (0.30-0.80) Absolute Eos (auto) 0.05 10^3/uL 10^3/uL (0.03-0.40) Absolute Basos (auto) 0.04 10^3/uL 10^3/uL (0.02-0.10) Absolute Nucleated RBC 0.00 10^3/uL 10^3/uL (0-0.01) Immature Gran % 0.1 % % (0.0-1.1) Immature Gran # 0.01 10^3/uL 10^3/uL (0.00-0.10) Sodium 139 mEq/L mEq/L (135-145) Potassium 3.9 mEq/L mEq/L (3.5-5.2) Chloride 100 mEq/L mEq/L (97-110) Carbon Dioxide 25 mEq/l mEq/l (22-31) Anion Gap 14 mEq/L mEq/L (8-16) BUN 16 mg/dL mg/dL (7-23) Creatinine 1.0 mg/dL mg/dL (0.7-1.3) Estimated GFR > 60 Glucose 118 mg/dL H mg/dL (70-100) Calcium 9.4 mg/dL mg/dL (8.5-10.4) Troponin I < 0.012 ng/mL ng/mL (0.000-0.034) NT-Pro-B Natriuret Pep 14 pg/mL pg/mL (0-125) Medications Given: Discontinued Medications Aspirin (Aspirin) 324 mg PO EDNOW ONE Stop: 06/22/17 13:49 Last Admin: 06/22/17 14:12 Dose: 324 mg Sodium Chloride (Ns) 1,000 mls @ 0 mls/hr IV ONCE ONE; Wide Open PRN Reason: Protocol Stop: 06/22/17 14:47 Last Admin: 06/22/17 14:51 Dose: 1,000 mls Lorazepam (Ativan Injection) 1 mg IVP EDNOW ONE Stop: 06/22/17 13:50 Last Admin: 06/22/17 14:12 Dose: 1 mg Departure - Departure Disposition: Against Medical Advice Clinical Impression: Chest pain Qualifiers: Chest pain type: precordial pain Qualified Code(s): R07.2 - Precordial pain Condition: Fair Instructions: Chest Pain (ED) Additional Instructions: Please return for cardiac evaluation. Referrals: Nadeem Almendarez MD [Primary Care Provider] - As per Instructions
[2017-06-22 14:08] LABS: PLATELET COUNT 153 10^3/uL (150-400)
[2017-06-22 14:15] VITALS: BP 173/103
[2017-06-22] MEDS ORDERED: NS 1,000 ML IV ONE (14:46)
== END 2017-06-22 15:06 | disposition left against medical advice (07) ==
DX: R07.2 Precordial pain (principal); E86.9 Volume depletion, unspecified; F17.200 Nicotine dependence, unspecified, uncomplicated
CPT/HCPCS: 96374; J2060

== ENCOUNTER 2017-06-23 11:44 | Emergency (ER) | payer MEDICAID ==
[2017-06-23 11:53] VITALS: BP 139/82
--- NOTE | 2017-06-23 13:41 | EDPHY ---
H & P Stated Complaint: meth use/ poss w/d Time Seen by Provider: 06/23/17 13:41 HPI/ROS: HPI: This is a 41-year-old male who presents with Chief Complaint: meth use/ poss w/d Location:left anterior chest Quality:sharp stabbing pain Duration: 5-8 hours prior to arrival Signs and Symptoms: no shortness of breath at rest, no shortness of breath on exertion, no cough, + chest pain, no palpitations, no lower extremity edema, no wheezing, no orthopnea, no paroxysmal nocturnal dyspnea, no fever, no injury/ trauma, no hemoptysis, no carpal pedal spasms Timing: acute Severity: Context: Patient has a history of methamphetamine abuse and presents for the 2nd time to the emergency room complaining of sharp, sudden onset left anterior chest pain that occurred while he was chopping wood and working outside. 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 Patient reports that was nonradiating in nature. He did feel short of breath and somewhat nauseous. He was seen yesterday in this emergency room for negative cardiac workup. He informs me that he has an appoint with his primary care provider tomorrow. He also reports that his father at age 52 from a massive heart attack in his extremely anxious about this. Yesterday he left AMA. While he was waiting in the room he began to get angry and started yelling. He told nurse that he wanted to be discharged and use methamphetamine. Modifying Factors: None Comment: ROS: see HPI Constitutional: No fever, no chills, no weight loss Eyes: No blurred vision Respiratory: No shortness of breath, no cough Cardiovascular: + chest pain, no palpitations, no lower extremity edema Gastrointestinal: No nausea, no vomiting, no diarrhea Genitourinary: No dysuria Extremities: No myalgias Neurologic: No weakness, no numbness Skin: No rashes Hematologic: No bruising, no bleeding MEDICAL/SURGICAL/SOCIAL HISTORY: Medical history: HEP C, adhd, bipolar, thrush, methamphetamine abuse Surgical history: Cholecystectomy Social history: Employed CONSTITUTIONAL: Middle-aged white male, awake and alert, no obvious distress HEENT: Atraumatic and normocephalic, PERRL, EOMI. Nares patent; no rhinorrhea; no nasal mucosal edema. Tympanic membranes clear. Oropharynx clear, no exudate and moist pink mucosa. Airway patent. No lymphadenopathy. No meningismus. Cardiovascular: Normal S1/S2, regular rate, regular rhythm, without murmur rub or gallop. PULMONARY/CHEST: Symmetrical and nontender. Clear to auscultation bilaterally. Good air movement. No accessory muscle usage. ABDOMEN: Soft, nondistended, nontender, no rebound, no guarding, no peritoneal signs, no masses or organomegaly. No CVAT. EXTREMITIES: 2/2 pulses, strength 5/5, no deformities, no clubbing, no cyanosis or edema. NEUROLOGICAL: no focal neuro deficits. GCS 15. SKIN: Warm and dry, tattoos everywhere no erythema. no rash. Good capillary refill. Source: Patient, Old records Exam Limitations: No limitations - Medical/Surgical History Hx Asthma: No Hx Chronic Respiratory Disease: No Hx Diabetes: No Hx Cardiac Disease: No Hx Renal Disease: No Hx Cirrhosis: No Hx Alcoholism: No Hx HIV/AIDS: No Hx Splenectomy or Spleen Trauma: No Other PMH: PMH- HEP C, adhd, bipolar, thrush. PSH- DEYVI. Meth Abuse - Social History Smoking Status: Current every day smoker Constitutional: Initial Vital Signs Temperature (C) 36.8 C 06/23/17 11:49 Heart Rate 99 06/23/17 11:49 Respiratory Rate 16 06/23/17 11:49 Blood Pressure 139/82 H 06/23/17 11:49 O2 Sat (%) 95 06/23/17 11:49 O2 Delivery Mode Room Air Allergies/Adverse Reactions: No Known Allergies Allergy (Verified 05/19/17 18:00) Home Medications: Medication Instructions Recorded ADDERALL 15 MG TABLET 03/16/16 Medical Decision Making - Diagnostics EKG Interpretation: 12 lead EKG: Indication: Chest pain Rhythm: Normal sinus rhythm, rate of 87 beats per [place]: Normal Intervals: Normal QRS: Normal ST segments: Normal INTERPRETATION: No acute ischemic changes The 12 lead EKG was interpreted by myself and with attending. ED Course/Re-evaluation: Labs and EKG ordered Review chest x-ray from yesterday no signs of effusion, opacity, pneumothorax. BECKY risk low for ACS Labs reviewed. No signs of leukocytosis/anemia/SUSAN/elevated LFTs/electrolyte imbalance/coagulopathy/ACS/CHF. Suspect musculoskeletal in nature versus but effect from methamphetamine use. Lung sounds are benign. No indication to prescribe albuterol inhaler. This patient was seen under the supervision of my secondary supervising physician. I evaluated care for this patient independently. Discussed this patient with Dr. Dia who did not see the patient. Differential Diagnosis: Chest pain including but not limited to myocardial ischemia, pulmonary embolus, chest wall pain, pleural inflammation and pulmonary infectious causes. - Data Points Laboratory Results: Laboratory Results 06/23/17 11:30 06/23/17 11:30 06/23/17 06/23/17 11:30 11:30 WBC 6.01 10^3/uL 10^3/uL (3.80-9.50) RBC 5.34 10^6/uL 10^6/uL (4.40-6.38) Hgb 16.9 g/dL g/dL (13.7-17.5) Hct 47.9 % % (40.0-51.0) MCV 89.7 fL fL (81.5-99.8) MCH 31.6 pg pg (27.9-34.1) MCHC 35.3 g/dL g/dL (32.4-36.7) RDW 12.2 % % (11.5-15.2) Plt Count 163 10^3/uL 10^3/uL (150-400) MPV 10.2 fL fL (8.7-11.7) Neut % (Auto) 57.3 % % (39.3-74.2) Lymph % (Auto) 32.1 % % (15.0-45.0) [place] % (Auto) 8.7 % % (4.5-13.0) Eos % (Auto) 1.0 % % (0.6-7.6) Baso % (Auto) 0.7 % % (0.3-1.7) Nucleat RBC Rel Count 0.0 % % (0.0-0.2) Absolute Neuts (auto) 3.45 10^3/uL 10^3/uL (1.70-6.50) Absolute Lymphs (auto) 1.93 10^3/uL 10^3/uL (1.00-3.00) Absolute Monos (auto) 0.52 10^3/uL 10^3/uL (0.30-0.80) Absolute Eos (auto) 0.06 10^3/uL 10^3/uL (0.03-0.40) Absolute Basos (auto) 0.04 10^3/uL 10^3/uL (0.02-0.10) Absolute Nucleated RBC 0.00 10^3/uL 10^3/uL (0-0.01) Immature Gran % 0.2 % % (0.0-1.1) Immature Gran # 0.01 10^3/uL 10^3/uL (0.00-0.10) Sodium 139 mEq/L mEq/L (135-145) Potassium 4.9 mEq/L mEq/L (3.5-5.2) Chloride 101 mEq/L mEq/L (97-110) Carbon Dioxide 28 mEq/l mEq/l (22-31) Anion Gap 10 mEq/L mEq/L (8-16) BUN 16 mg/dL mg/dL (7-23) Creatinine 1.1 mg/dL mg/dL (0.7-1.3) Estimated GFR > 60 Glucose 86 mg/dL mg/dL (70-100) Calcium 9.7 mg/dL mg/dL (8.5-10.4) Total Bilirubin 0.7 mg/dL mg/dL (0.1-1.4) Conjugated Bilirubin 0.5 mg/dL mg/dL (0.0-0.5) Unconjugated Bilirubin 0.2 mg/dL mg/dL (0.0-1.1) AST 66 IU/L H IU/L (17-59) ALT 98 IU/L H IU/L (21-72) Alkaline Phosphatase 65 IU/L IU/L (38-126) Troponin I < 0.012 ng/mL ng/mL (0.000-0.034) NT-Pro-B Natriuret Pep 16 pg/mL pg/mL (0-125) Total Protein 8.0 g/dL g/dL (6.3-8.2) Albumin 4.4 g/dL g/dL (3.5-5.0) Lipase 147 IU/L IU/L (23-300) Departure - Departure Disposition: Home, Routine, Self-Care Clinical Impression: Chest pain, non-cardiac Condition: Good Instructions: Noncardiac Chest Pain (ED) Additional Instructions: EKG and laboratory studies today were unremarkable and showed no signs of cardiac chest pain. Please refrain from tobacco and methamphetamine use as this could irritate your lungs and chest. Please keep follow-up with tomorrow primary care provider tomorrow. Return to the ER immediately if you experience new, continued or worsened chest pain, chest pain that radiates, chest pain accompanied by exertion or associated with shortness of breath, sweating, nausea, dizziness, back pain, or any other symptoms that concern you. Referrals: Nadeem Almendarez MD [Primary Care Provider] - As per Instructions
[2017-06-23 13:56] LABS: PLATELET COUNT 163 10^3/uL (150-400)
--- NOTE | 2017-06-23 13:58 | CPEKG ---
Heart Rate: 87 RR Interval: 690 P-R Interval: 160 QRSD Interval: 90 QT Interval: 360 QTC Interval: 433 P [place]: 44 QRS [place]: 9 T Wave [place]: 58 EKG Severity - BORDERLINE ECG - EKG Impression: SINUS RHYTHM EKG Impression: BORDERLINE INFERIOR Q WAVES Electronically Signed By: Audrey Ragland 23-Jun-2017 18:47:50
--- NOTE | 2017-06-24 11:06 | ASDISCHSUM ---
Discharge Information Plan Status:Home with No Needs Medically Cleared to Leave: Discharge Date:06/23/2017 02:51 PM CM D/C Disposition:Home, Routine, Self-Care ADT D/C Disposition:Home, Routine, Self-Care Projected Discharge Date:06/23/2017 02:51 PM Transportation at D/C:None or Unknown Discharge Delay Reason: Follow-Up Date:06/23/2017 02:51 PM Discharge Slot: Final Diagnosis: Placement Information Patient Contact Information Contact Name:KAREN Relationship: Address:[address] City:[place] Alternate Phone: [facility]/Zip Code:[place] [address] Email: Financial Information Financial Class:Medicaid 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 Pt had an appt with his PCP, Nadeem Almendarez, this morning at 8:20am but pt did not show up to the appt. Pt's last visit at was on 06/03/17 w/Nadeem Almendarez. Pt was also seen on 05/26/17 by Nadeem Almendarez and a Behavioral Health Provider during that visit. Pt has been receiving his Adderall prescription through [facility] but is also a client at [facility]. This CM requested that PC reach out to patient and see about rescheduling a follow-up appt and also consider another [facility] appt. Also requested patient to be considered for complex care. Jackeline says she will put a note in pt's chart and they will reach out to the patient. CM available for further assistance if needed. Date Signed: 06/24/2017 11:04 AM Electronically Signed By:Paula Travis RN Intervention Information Intervention Type:Post Acute Communication Date of Service:06/24/2017 11:04 AM Patient Type:Emergency Room Staff Member:STEPHY Travis Sharon Hours:0.25 Discipline:Electoral Officer Severity: Comment:Followed up with [facility] re:pt 's appt today. PC to reach out to patient.
== END 2017-06-23 14:51 | disposition home or self-care (01) ==
LOC: EDUNIT#
DX: R07.89 Other chest pain (principal); F17.200 Nicotine dependence, unspecified, uncomplicated

== ENCOUNTER 2017-06-28 12:07 | Emergency (ER) | payer MEDICAID ==
[2017-06-28 12:14] VITALS: BP 151/84
--- NOTE | 2017-06-28 12:38 | ASMTCMCOM ---
CM Note CM Note Notes: 06/28/2017 Case Management Note Compiled Medicaid specific inpatient and outpatient drug cessation resources, brochure for [facility] and phone number for [facility]. Pt left the triage waiting room. Case Management left brochures with triage nurse in case pt returns. Date Signed: 06/28/2017 12:38 PM Electronically Signed By:Siri Barnett RN
== END 2017-06-28 12:32 | disposition left against medical advice (07) ==
DX: Z53.21 Procedure and treatment not carried out due to patient leaving prior to being seen by health care provider (principal)

== ENCOUNTER 2017-07-26 12:41 | Emergency (ER) | payer MEDICAID ==
[2017-07-26] MEDS ORDERED: NS 1,000 ML IV ONE ×2 (12:59→14:06)
[2017-07-26] MEDS ORDERED: LORazepam 2 MG/ML INJ IVP ONE ×2 (13:00→13:27)
--- NOTE | 2017-07-26 13:05 | CPEKG ---
Heart Rate: 138 RR Interval: 435 P-R Interval: 124 QRSD Interval: 98 QT Interval: 292 QTC Interval: 443 P [place]: 58 QRS [place]: 55 T Wave [place]: 74 EKG Severity - ABNORMAL ECG - EKG Impression: SINUS TACHYCARDIA EKG Impression: BORDERLINE INFERIOR Q WAVES EKG Impression: PROBABLE ANTEROLATERAL INFARCT, OLD EKG Impression: SIMILAR CHANGES WERE NOTED IN THE PAST. ACCELERATED HEART RATES ARE NOTED Electronically Signed By: Felix Herrera 29-Jul-2017 11:40:28
--- NOTE | 2017-07-26 13:10 | EDPHY ---
HPI/HX/ROS/PE/MDM Narrative: CHIEF COMPLAINT: Anxiety, chest pain, meth use HPI: The patient is a 41 y/o male with a history of methamphetamine abuse arriving with a friend complaining of anxiety and intermittent chest pain following methamphetamine use last night. This is his 6th visit to our ED in the last few months for similar complaints. He was most recently seen here one month ago for this and during work up he became angry with the nurse yelling to be discharged so he could use methamphetamine. Today, he describes general anxiety and occasional brief episodes of anterior, "shooting" chest pain lasting up to 30 seconds each time. No dyspnea, vomiting, abdominal pain, diarrhea, fever, recent illness, or recent trauma. No history of cardiac disease. REVIEW OF SYSTEMS: Aside from elements discussed in the HPI, a comprehensive 10-point review of systems was reviewed and is negative. PMH: Hepatitis C, ADHD, bipolar disorder, thrush, methamphetamine abuse, cholecystectomy Prior medical records reviewed including ED visit 06/23/17 for the same symptoms. SOCIAL HISTORY: Daily smoker. Meth abuse. Friend at bedside. PHYSICAL EXAM: General:Patient is alert, anxious-appearing, HR 130. ENT:Eyes are normal to inspection. ENT inspection normal. Neck: Normal inspection. Full range of motion. Respiratory:No respiratory distress. Breath sounds normal bilaterally. Cardiovascular: Tachycardic regular rate and rhythm. Strong peripheral pulses. Normal cap refill. Abdomen:The abdomen is nontender to palpation. There are no peritoneal signs. Back: Normal to inspection. No tenderness to palpation. Skin: Normal color. No rash. Warm and dry. Extremities: Normal appearance. Full range of motion. Neuro: Oriented x3. Normal motor function. Normal sensory function. Tremulous. ED Course: This is a 41 y/o male who recently used methamphetamine and now complains of chest pain and anxiety. He is tachycardic around 130-140 and anxious-appearing, but otherwise has a normal exam. Presentation likely related to methamphetamine use, but will rule out acute cardiac issues as well. Plan for standard cardiac work up including IV, labs, EKG, chest x-ray. 1mg IV Ativan and 1L IV NS ordered for symptoms. The 12 lead EKG was interpreted by myself. Sinus tachycardia. See hard copy and/ or "tracemaster" electronic copy for interpretation. Negative troponin. Additional 1mg IV Ativan and 1L IV NS administered. Patient has requested ice to place on his crotch for unclear reasons. Chest x-ray: negative for acute process. Labs unremarkable. Patient has requested to leave department. HR currently between 110-120. Work up here thus far has been negative for concerning cardiac etiology. Presentation likely caused by his meth use. He will be discharged with standard chest pain care and follow up instructions. Counselled avoidance of methamphetamine and other illicit drugs. Return precautions discussed. - Data Points Imaging Results: Imaging Impressions Chest X-Ray 07/26/17 13:00 Impression: No acute pulmonary disease. Imaging: I viewed and interpreted images myself Laboratory Results: Laboratory Results 07/26/17 13:06 07/26/17 13:06 07/26/17 07/26/17 07/26/17 13:09 13:06 13:06 WBC 6.85 10^3/uL 10^3/uL (3.80-9.50) RBC 5.52 10^6/uL 10^6/uL (4.40-6.38) Hgb 16.8 g/dL g/dL (13.7-17.5) Hct 47.2 % % (40.0-51.0) MCV 85.5 fL fL (81.5-99.8) MCH 30.4 pg pg (27.9-34.1) MCHC 35.6 g/dL g/dL (32.4-36.7) RDW 12.0 % % (11.5-15.2) Plt Count 155 10^3/uL 10^3/uL (150-400) MPV 10.2 fL fL (8.7-11.7) Neut % (Auto) 56.5 % % (39.3-74.2) Lymph % (Auto) 31.5 % % (15.0-45.0) Sherman % (Auto) 10.5 % % (4.5-13.0) Eos % (Auto) 1.0 % % (0.6-7.6) Baso % (Auto) 0.4 % % (0.3-1.7) Nucleat RBC Rel Count 0.0 % % (0.0-0.2) Absolute Neuts (auto) 3.86 10^3/uL 10^3/uL (1.70-6.50) Absolute Lymphs (auto) 2.16 10^3/uL 10^3/uL (1.00-3.00) Absolute Monos (auto) 0.72 10^3/uL 10^3/uL (0.30-0.80) Absolute Eos (auto) 0.07 10^3/uL 10^3/uL (0.03-0.40) Absolute Basos (auto) 0.03 10^3/uL 10^3/uL (0.02-0.10) Absolute Nucleated RBC 0.00 10^3/uL 10^3/uL (0-0.01) Immature Gran % 0.1 % % (0.0-1.1) Immature Gran # 0.01 10^3/uL 10^3/uL (0.00-0.10) Sodium 143 mEq/L mEq/L (135-145) Potassium 4.0 mEq/L mEq/L (3.3-5.0) Chloride 103 mEq/L mEq/L (97-110) Carbon Dioxide 24 mEq/l mEq/l (22-31) Anion Gap 16 mEq/L mEq/L (8-16) BUN 19 mg/dL mg/dL (7-23) Creatinine 0.9 mg/dL mg/dL (0.7-1.3) Estimated GFR > 60 Glucose 146 mg/dL H mg/dL (70-100) Calcium 9.4 mg/dL mg/dL (8.5-10.4) POC Troponin I 0.00 ng/mL ng/mL (0.00-0.08) Medications Given: Discontinued Medications Sodium Chloride (Ns) 1,000 mls @ 0 mls/hr IV EDNOW ONE; Wide Open PRN Reason: Protocol Stop: 07/26/17 13:00 Last Admin: 07/26/17 13:17 Dose: 1,000 mls Sodium Chloride (Ns) 1,000 mls @ 0 mls/hr IV ONCE ONE; Wide Open PRN Reason: Protocol Stop: 07/26/17 14:07 Last Admin: 07/26/17 14:06 Dose: 1,000 mls Lorazepam (Ativan Injection) 1 mg IVP EDNOW ONE Stop: 07/26/17 13:01 Last Admin: 07/26/17 13:17 Dose: 1 mg Lorazepam (Ativan Injection) 1 mg IVP EDNOW ONE Stop: 07/26/17 13:28 Last Admin: 07/26/17 13:44 Dose: 1 mg Point of Care Test Results: Chemistry 07/26/17 13:09 POC Troponin I 0.00 ng/mL ng/mL (0.00-0.08) General Time Seen by Provider: 07/26/17 12:59 Initial Vital Signs: Initial Vital Signs Temperature (C) 36.7 C 07/26/17 12:44 Heart Rate 144 H 07/26/17 12:44 Respiratory Rate 20 07/26/17 12:44 Blood Pressure 160/102 H 07/26/17 12:44 O2 Sat (%) 98 07/26/17 12:44 O2 Delivery Mode Room Air Allergies/Adverse Reactions: No Known Allergies Allergy (Verified 06/28/17 12:09) Home Medications: Medication Instructions Recorded ADDERALL 15 MG TABLET 03/16/16 Departure - Departure Disposition: Home, Routine, Self-Care Clinical Impression: Anxiety, Methamphetamine abuse Chest pain Qualifiers: Chest pain type: other chest pain Qualified Code(s): R07.89 - Other chest pain Condition: Good Instructions: Chest Pain (ED), Methamphetamine Abuse (ED) Additional Instructions: Avoid abuse of methamphetamine as it is likely causing most of your symptoms. Follow up with wood products manufacturer this week. Return to the ED for worsening of condition. Referrals: [facility],. [Clinic] - As per Instructions Gio Mckeon MD [Medical Doctor] - As per Instructions Report Scribed for: August Yin Report Scribed by: Paradise Rogers Date of Report: 07/26/17 Time of Report: 13:07 Physician Review and Approval Statement: Portions of this note were transcribed by an ED scribe. I personally performed the history, physical exam, and medical decision making; and confirm the accuracy of the information in the transcribed note.
[2017-07-26 13:17] LABS: PLATELET COUNT 155 10^3/uL (150-400)
[2017-07-26 15:28] VITALS: BP 170/103
== END 2017-07-26 15:23 | disposition home or self-care (01) ==
DX: R07.89 Other chest pain (principal); F41.9 Anxiety disorder, unspecified; F15.10 Other stimulant abuse, uncomplicated; F17.200 Nicotine dependence, unspecified, uncomplicated; E86.9 Volume depletion, unspecified
CPT/HCPCS: 84484-PO; 96374; J2060

== ENCOUNTER 2017-08-19 04:58 | Emergency (ER) | payer MEDICAID ==
--- NOTE | 2017-08-19 06:45 | EDPHY ---
H & P Stated Complaint: L side head pain, "started during sex", hx "brain injury", staph infection" Time Seen by Provider: 08/19/17 06:00 HPI/ROS: HPI The patient presents with headache which began 40 min ago which occurred suddenly during intercourse. It is unilateral on the left side of his head sharp and throbbing in nature, has been constant though is somewhat subsided since it began. It is not associated with any vision change, nausea, vomiting. He denies any head injury. He has no prior history of similar headache. He does not have a fever or photophobia.. REVIEW OF SYSTEMS Constitutional: No fever, no chills. Eyes: No discharge. ENT: No sore throat. Cardiovascular: No chest pain, no palpitations. Respiratory: No cough, no shortness of breath. Gastrointestinal: No abdominal pain, no vomiting. Genitourinary: No hematuria. Musculoskeletal: No back pain. Skin: No rashes. Neurological: Positive headache. PMHx: Methamphetamine abuse, history of recurrent chest pain Soc Hx: Methamphetamine abuse, here with his PHYSICAL General Appearance: Alert, no distress Eyes: Pupils equal and round no pallor or injection ENT, Mouth: Mucous membranes moist Respiratory: There are no retractions, lungs are clear to auscultation Cardiovascular: Regular rate and rhythm Gastrointestinal: Abdomen is soft and non-tender, no masses, bowel sounds normal Neurological: A&O x3, cranial nerves 2-12 intact, 5/5 strength in upper and lower extremities which is symmetric, no pronator drift, normal finger to nose testing Skin: Warm and dry, no rashes Musculoskeletal: Neck is supple non tender Extremities: symmetrical, full range of motion Psychiatric: Patient is oriented X 3, there is no agitation Source: Patient Exam Limitations: No limitations - Personal History Current Tetanus Diphtheria and Acellular Pertussis (TDAP): No - Medical/Surgical History Hx Asthma: No Hx Chronic Respiratory Disease: No Hx Diabetes: No Hx Cardiac Disease: No Hx Renal Disease: No Hx Cirrhosis: No Hx Alcoholism: No Hx HIV/AIDS: No Hx Splenectomy or Spleen Trauma: No Other PMH: PMH- HEP C, adhd, bipolar, thrush. PSH- DEYVI. Meth Abuse. "Brain injury" - Social History Smoking Status: Current every day smoker Constitutional: Initial Vital Signs Temperature (C) 36.8 C 08/19/17 04:59 Heart Rate 105 H 08/19/17 04:59 Respiratory Rate 20 08/19/17 04:59 Blood Pressure 149/91 H 08/19/17 04:59 O2 Sat (%) 96 08/19/17 04:59 O2 Delivery Mode Room Air Allergies/Adverse Reactions: No Known Allergies Allergy (Verified 08/20/17 22:18) Home Medications: Medication Instructions Recorded Lorazepam 08/20/17 Medical Decision Making Differential Diagnosis: 42-year-old male presents with acute onset of left-sided headache during sexual intercourse just prior to arrival. Headache is now mostly improved. On exam, he has no neurologic deficits, no neck tenderness, no ongoing vomiting. Differential diagnosis includes intracranial hemorrhage related to ruptured aneurysm, tension-type headache, migraine headache. CT scan of head is unremarkable for any acute bleed. Given his symptoms started 40 min prior to when he had a CT scan, I feel we have effectively ruled out subarachnoid hemorrhage. He is relieved to find that his CT scan is normal. I have offered him medication for symptomatic relief, however he declines. He will be discharged from the emergency department. Departure - Departure Disposition: Home, Routine, Self-Care Clinical Impression: Headache Condition: Good Instructions: Acute Headache (ED) Additional Instructions: Please make sure to drink plenty of fluids. You can take ibuprofen 400 mg every 6 hr as needed for your headache. Referrals: Nadeem Almendarez MD [Primary Care Provider] - As per Instructions
[2017-08-19 06:52] VITALS: BP 135/96
== END 2017-08-19 06:56 | disposition home or self-care (01) ==
DX: R51 Headache (principal); F17.200 Nicotine dependence, unspecified, uncomplicated

== ENCOUNTER 2017-08-20 22:12 | Emergency (ER) | payer MEDICAID ==
--- NOTE | 2017-08-20 22:25 | CPEKG ---
Heart Rate: 109 RR Interval: 550 P-R Interval: 156 QRSD Interval: 96 QT Interval: 332 QTC Interval: 448 P Sterling: 71 QRS Sterling: 49 T Wave Sterling: 72 EKG Severity - OTHERWISE NORMAL ECG - EKG Impression: SINUS TACHYCARDIA Electronically Signed By: Oly Seals 21-Aug-2017 07:20:06
[2017-08-20] MEDS ORDERED: NS 1,000 ML IV ONE (22:28)
[2017-08-20] MEDS ORDERED: LORazepam 2 MG/ML INJ IVP ONE (22:29)
--- NOTE | 2017-08-20 22:32 | EDPHY ---
H & P Stated Complaint: sharp left side of CP, withdrawal from meth Time Seen by Provider: 08/20/17 22:22 HPI/ROS: HPI The patient presents with chest pain which began about 1 hr prior to presentation when he started a walk with his to the store. The pain is sharp, left-sided, does not radiate, is associated with shortness of breath, no nausea vomiting, dizziness or diaphoresis. The patient has been to our emergency department on multiple occasions for this chest pain in the setting of methamphetamine use and possible withdrawals. He was last here on July 26 with a negative workup. He has been referred to [facility], from case management notes, it appears that he misses several appointments. The patient says this pain feels a bit different than his usual as it is sharp instead of dull. He attributes this to methamphetamine withdrawal. He last used methamphetamine yesterday morning and said he does not want to use it any more.. REVIEW OF SYSTEMS Constitutional: No fever, no chills. Eyes: No discharge. ENT: No sore throat. Cardiovascular: Positive for chest pain, no palpitations. Respiratory: No cough, no shortness of breath. Gastrointestinal: No abdominal pain, no vomiting. Genitourinary: No hematuria. Musculoskeletal: No back pain. Skin: No rashes. Neurological: No headache. PMHx: Hepatitis-C, attention deficit hyperactivity disorder, bipolar disorder Soc Hx: Methamphetamine use PHYSICAL General Appearance: Alert, no distress Eyes: Pupils equal and round no pallor or injection ENT, Mouth: Mucous membranes moist Respiratory: There are no retractions, lungs are clear to auscultation Cardiovascular: Regular rate and rhythm ; there is left-sided chest wall tenderness to palpation Gastrointestinal: Abdomen is soft and non-tender, no masses, bowel sounds normal Neurological: A&O, moves all extremities Skin: Warm and dry, no rashes Musculoskeletal: Neck is supple non tender Extremities: symmetrical, full range of motion Psychiatric: Patient is oriented X 3, there is no agitation Source: Patient Exam Limitations: No limitations - Personal History Current Tetanus/Diphtheria Vaccine: Yes Current Tetanus Diphtheria and Acellular Pertussis (TDAP): Yes - Medical/Surgical History Hx Asthma: Yes Hx Chronic Respiratory Disease: No Hx Diabetes: No Hx Cardiac Disease: No Hx Renal Disease: No Hx Cirrhosis: No Hx Alcoholism: No Hx HIV/AIDS: No Hx Splenectomy or Spleen Trauma: No Other PMH: PMH- HEP C, adhd, bipolar, thrush. PSH- DEYVI. Meth Abuse. "Brain injury" - Social History Smoking Status: Current every day smoker Constitutional: Initial Vital Signs Temperature (C) 36.8 C 08/20/17 22:14 Heart Rate 115 H 08/20/17 22:14 Respiratory Rate 18 08/20/17 22:14 Blood Pressure 153/96 H 08/20/17 22:14 O2 Sat (%) 95 08/20/17 22:14 Allergies/Adverse Reactions: No Known Allergies Allergy (Verified 08/20/17 22:18) Home Medications: Medication Instructions Recorded Lorazepam 08/20/17 Medical Decision Making - Diagnostics EKG Interpretation: EKG: Complete interpretation has been separately recorded in the [email or web address] archive. Summary impression: Sinus tachycardia, no ST segment change, unchanged from prior EKG from July 26 Imaging Results: Chest x-ray two view shows no cardiomegaly, no effusion, no infiltrates, unchanged from prior chest x-ray from 1 month ago. Imaging: I viewed and interpreted images myself Differential Diagnosis: This is a 42-year-old male with history of methamphetamine abuse, psychiatric disease, frequent ER visits for chest pain, presenting again with chest pain for the last 1 hr which is sharp in nature and associated with shortness of breath. On arrival here he is slightly tachycardic, he does have chest wall tenderness. He last used meth slightly more than 24 hr ago per his report. Differential diagnosis includes costochondritis, GERD, muscle strain, I doubt ACS at this time as well as PE given multiple frequent similar visits with benign evaluations. Here, the patient is given IV fluids and Ativan for his tachycardia and symptoms of anxiety which he attributes to Ativan withdrawal. EKG and chest x- ray were obtained. Labs were unremarkable including a troponin. I feel he can be safely discharged. I have encouraged him to follow up at [facility]. - Data Points Laboratory Results: Laboratory Results 08/20/17 22:34 08/20/17 08/20/17 08/20/17 22:50 22:34 22:34 WBC Pending REJ RBC Pending REJ Hgb Pending REJ Hct Pending REJ MCV Pending REJ MCH Pending REJ MCHC Pending REJ RDW Pending REJ Plt Count Pending REJ MPV Pending REJ Neut % (Auto) Pending REJ Lymph % (Auto) Pending REJ Winkler % (Auto) Pending REJ Eos % (Auto) Pending REJ Baso % (Auto) Pending REJ Nucleat RBC Rel Count Pending REJ Absolute Neuts (auto) Pending REJ Absolute Lymphs (auto) Pending REJ Absolute Monos (auto) Pending REJ Absolute Eos (auto) Pending REJ Absolute Basos (auto) Pending REJ Absolute Nucleated RBC Pending REJ Immature Gran % Pending REJ Immature Gran # Pending REJ Sodium 134 mEq/L L mEq/L (135-145) Potassium 4.0 mEq/L mEq/L (3.3-5.0) Chloride 102 mEq/L mEq/L (97-110) Carbon Dioxide 27 mEq/l mEq/l (22-31) Anion Gap 5 mEq/L L mEq/L (8-16) BUN 20 mg/dL mg/dL (7-23) Creatinine 1.0 mg/dL mg/dL (0.7-1.3) Estimated GFR > 60 Glucose 124 mg/dL H mg/dL (70-100) Calcium 9.1 mg/dL mg/dL (8.5-10.4) POC Troponin I 08/20/17 22:28 WBC RBC Hgb Hct MCV MCH MCHC RDW Plt Count MPV Neut % (Auto) Lymph % (Auto) Winkler % (Auto) Eos % (Auto) Baso % (Auto) Nucleat RBC Rel Count Absolute Neuts (auto) Absolute Lymphs (auto) Absolute Monos (auto) Absolute Eos (auto) Absolute Basos (auto) Absolute Nucleated RBC Immature Gran % Immature Gran # Sodium Potassium Chloride Carbon Dioxide Anion Gap BUN Creatinine Estimated GFR Glucose Calcium POC Troponin I 0.00 ng/mL ng/mL (0.00-0.08) Medications Given: Discontinued Medications Sodium Chloride (Ns) 1,000 mls @ 0 mls/hr IV EDNOW ONE; Wide Open PRN Reason: Protocol Stop: 08/20/17 22:29 Last Admin: 08/20/17 22:48 Dose: 1,000 mls Lorazepam (Ativan Injection) 1 mg IVP EDNOW ONE Stop: 08/20/17 22:30 Last Admin: 08/20/17 22:48 Dose: 1 mg Point of Care Test Results: Chemistry 08/20/17 22:28 POC Troponin I 0.00 ng/mL ng/mL (0.00-0.08) Departure - Departure Disposition: Home, Routine, Self-Care Clinical Impression: Methamphetamine abuse Chest pain Qualifiers: Chest pain type: unspecified Qualified Code(s): R07.9 - Chest pain, unspecified Condition: Good Instructions: Chest Pain (ED) Additional Instructions: You need to [facility] for your [facility]. You're tests were all normal today. Referrals: Nadeem Almendarez MD [Primary Care Provider] - As per Instructions
[2017-08-20 23:10] LABS: PLATELET COUNT 137 10^3/uL (150-400)
[2017-08-20 23:14] VITALS: BP 136/83
== END 2017-08-20 23:19 | disposition home or self-care (01) ==
DX: R07.9 Chest pain, unspecified (principal); F15.10 Other stimulant abuse, uncomplicated; E86.9 Volume depletion, unspecified; J45.909 Unspecified asthma, uncomplicated; F17.200 Nicotine dependence, unspecified, uncomplicated
CPT/HCPCS: 84484-PO; 96374; J2060

== ENCOUNTER 2017-08-21 05:02 | Emergency (ER) | payer MEDICAID ==
--- NOTE | 2017-08-21 05:11 | EDPHY ---
H & P Stated Complaint: choking episode Time Seen by Provider: 08/21/17 05:09 HPI/ROS: HPI The patient presents with a choking episode that awoke him from sleep. I saw him several hours ago in the emergency department for a sharp atypical chest pain. He was discharged, went home. He went to bed and then awoke just prior to arrival with a choking sensation around his throat that then resolved and became a pressure like neck and chest pain. He was able to cough up some phlegm and that helped his symptoms. He does have a history of GERD he says. He comes in via ambulance. He says his and son were very concerned about him. He now asked to be discharged because he is feeling better. REVIEW OF SYSTEMS Constitutional: No fever, no chills. Eyes: No discharge. ENT: No sore throat. Cardiovascular: No chest pain, no palpitations. Respiratory: No cough, no shortness of breath. Gastrointestinal: No abdominal pain, no vomiting. Genitourinary: No hematuria. Musculoskeletal: No back pain. Skin: No rashes. Neurological: No headache. PMHx: Frequent episodes of chest pain, hepatitis-C, methamphetamine abuse Soc Hx: Methamphetamine abuse, lives at home with his in 14-year-old son PHYSICAL General Appearance: Alert, no distress Eyes: Pupils equal and round no pallor or injection ENT, Mouth: Mucous membranes moist Respiratory: There are no retractions, lungs are clear to auscultation Cardiovascular: Regular rate and rhythm Gastrointestinal: Abdomen is soft and non-tender, no masses, bowel sounds normal Neurological: A&O, moves all extremities Skin: Warm and dry, left medial eyebrow with 1 cm erythematous pustule, draining a small amount of whitish pus Musculoskeletal: Neck is supple non tender Extremities: symmetrical, full range of motion Psychiatric: Patient is oriented X 3, there is no agitation Source: Patient, EMS Exam Limitations: No limitations - Medical/Surgical History Hx Asthma: Yes Hx Chronic Respiratory Disease: No Hx Diabetes: No Hx Cardiac Disease: No Hx Renal Disease: No Hx Cirrhosis: No Hx Alcoholism: No Hx HIV/AIDS: No Hx Splenectomy or Spleen Trauma: No Other PMH: PMH- HEP C, adhd, bipolar, thrush. PSH- DEYVI. Meth Abuse. "Brain injury" - Social History Smoking Status: Current every day smoker Allergies/Adverse Reactions: No Known Allergies Allergy (Verified 08/21/17 05:17) Home Medications: Medication Instructions Recorded Lorazepam 08/20/17 Doxycycline Hyclate 100 mg PO BID #14 tab 08/21/17 Medical Decision Making Differential Diagnosis: This is a 42-year-old male with history of frequent episodes of chest pain, methamphetamine abuse, MRSA who presents brought in by ambulance for an episode of woke him from sleep. Afterwards he coughed up some phlegm and felt better. He does have a pressure like feeling throughout his neck and chest currently though it is resolving. I saw him earlier tonight in the emergency department for chest pain which was different in nature. He had normal EKG, chest x-ray, laboratory testing. He says he is come in now because his family was very concerned about him. I have offered him cardiac testing, however he declines and he would like to be discharged. He does have a left eyebrow pustule and has a history of MRSA. I will treat him with doxycycline for this. He will be discharged with his family. - Data Points Medications Given: Discontinued Medications Doxycycline Hyclate (Doxycycline Hyclate) 100 mg PO EDNOW ONE PRN Reason: Protocol Stop: 08/21/17 05:18 Last Admin: 08/21/17 05:18 Dose: 100 mg Departure - Departure Disposition: Home, Routine, Self-Care Clinical Impression: Sleep related choking sensation, Pustule Condition: Good Instructions: Diet for Stomach Ulcers and Gastritis (ED), Gastroesophageal Reflux Disease (ED) Additional Instructions: Please follow-up with your primary care doctor. You should return to the emergency department if your worse in any way. Referrals: Nadeem Almendarez MD [Primary Care Provider] - As per Instructions Prescriptions: Doxycycline Hyclate 100 mg PO BID #14 tab
[2017-08-21] MEDS ORDERED: DOXYCYCLINE HYCLATE 100 MG CAP/TAB ONE (05:15)
[2017-08-21] MEDS ORDERED: DOXYCYCLINE HYCLATE 100 MG CAP/TAB PO ONE (05:17)
[2017-08-21 05:23] VITALS: BP 125/73
== END 2017-08-21 05:28 | disposition home or self-care (01) ==
LOC: EDUNIT#
DX: R09.89 Other specified symptoms and signs involving the circulatory and respiratory systems (principal); L08.9 Local infection of the skin and subcutaneous tissue, unspecified; F17.200 Nicotine dependence, unspecified, uncomplicated

== ENCOUNTER 2017-11-07 02:08 | Emergency (ER) | payer MEDICAID ==
--- NOTE | 2017-11-07 02:49 | EDPHY ---
H & P Stated Complaint: chest pain Time Seen by Provider: 11/07/17 02:26 HPI/ROS: HPI The patient presents with chest pain which has been present for almost 24 hr and began after accidentally ingesting a tab of Adderall. His symptoms have been intermittent throughout the course of the day though became much worse about 1 hr ago while he was lying in bed. He felt palpitations and then developed left-sided chest pain which radiates to his left neck. The pain is now mostly resolved. It is not associated with any shortness of breath, nausea , vomiting, dizziness or diaphoresis. He has had multiple similar episodes of this pain and has been in our emergency department frequently. He says that he is not taking any methamphetamine or other drugs lately. He did see Dr. Mckeon from Cardiology and had a Holter monitor on October 27 which demonstrated PVCs and PACs. He is awaiting a follow-up appointment with them on December 01.. REVIEW OF SYSTEMS 10 systems were reviewed and negative with the exception of the elements mentioned in the history of present illness. PMHx: Hepatitis-C, attention deficit hyperactivity disorder Soc Hx: History of methamphetamine abuse, here with his FHx: PHYSICAL General Appearance: Alert, no distress Eyes: Pupils equal and round no pallor or injection ENT, Mouth: Mucous membranes moist Respiratory: There are no retractions, lungs are clear to auscultation Cardiovascular: Regular rate and rhythm Gastrointestinal: Abdomen is soft and non-tender, no masses, bowel sounds normal Neurological: A&O, moves all extremities Skin: Warm and dry, no rashes Musculoskeletal: Neck is supple non tender Extremities: symmetrical, full range of motion Psychiatric: Patient is oriented X 3, there is no agitation Source: Patient Exam Limitations: No limitations - Personal History Current Tetanus Diphtheria and Acellular Pertussis (TDAP): Yes - Medical/Surgical History Hx Asthma: Yes Hx Chronic Respiratory Disease: No Hx Diabetes: No Hx Cardiac Disease: No Hx Renal Disease: No Hx Cirrhosis: No Hx Alcoholism: No Hx HIV/AIDS: No Hx Splenectomy or Spleen Trauma: No Other PMH: PMH- HEP C, adhd, bipolar, thrush. PSH- DEYVI. Meth Abuse. "Brain injury" - Social History Smoking Status: Current every day smoker Constitutional: Initial Vital Signs Temperature (C) 36.8 C 11/07/17 02:11 Heart Rate 93 11/07/17 02:11 Respiratory Rate 20 11/07/17 02:11 Blood Pressure 157/109 H 11/07/17 02:11 O2 Sat (%) 100 11/07/17 02:11 O2 Delivery Mode Room Air Allergies/Adverse Reactions: No Known Allergies Allergy (Verified 11/07/17 02:10) Home Medications: Medication Instructions Recorded Lorazepam 08/20/17 Doxycycline Hyclate 100 mg PO BID #14 tab 08/21/17 Adderall 10 MG (*) 11/07/17 Medical Decision Making - Diagnostics EKG Interpretation: EKG: Complete interpretation has been separately recorded in the [facility] archive. Summary impression: Normal sinus rhythm Differential Diagnosis: 42-year-old man with history of methamphetamine abuse, palpitations and multiple ED visits for chest pain with negative workups, recently underwent a Holter monitor study demonstrating PVCs and PACs who presents now with chest pain which has resolved which occurred in the setting of Adderall use. Here, vital signs are normal. His exam is unremarkable. His chest pain is rated as 0. EKG and troponin were performed and were both unremarkable. I have offered him further testing, however he declines and would like to go home. Given he has had multiple negative workups I think this is reasonable. I have encouraged him to follow up with his cardiology appointment which has been scheduled for December 01 after missing an appointment yesterday. Differential diagnosis considered includes is PACs, PVCs, ACS, at other arrhythmia. - Data Points Laboratory Results: 11/07/17 11/07/17 02:53 02:50 POC Hgb 15.0 gm/dL gm/dL (13.7-17.5) POC Hct 44 % % (40-51) POC Sodium 140 mEq/L mEq/L (135-145) POC Potassium 3.7 mEq/L mEq/L (3.3-5.0) POC Chloride 109 mEq/L mEq/L (97-110) POC BUN 17 mg/dL mg/dL (7-23) POC Creatinine 0.9 mg/dL mg/dL (0.7-1.3) POC Glucose 99 mg/dL mg/dL (70-100) POC Troponin I 0.00 ng/mL ng/mL (0.00-0.08) Point of Care Test Results: Chemistry 11/07/17 11/07/17 02:53 02:50 POC Sodium 140 mEq/L mEq/L (135-145) POC Potassium 3.7 mEq/L mEq/L (3.3-5.0) POC Chloride 109 mEq/L mEq/L (97-110) POC BUN 17 mg/dL mg/dL (7-23) POC Creatinine 0.9 mg/dL mg/dL (0.7-1.3) POC Glucose 99 mg/dL mg/dL (70-100) POC Troponin I 0.00 ng/mL ng/mL (0.00-0.08) ISTAT H&H 11/07/17 02:53 POC Hgb 15.0 gm/dL gm/dL (13.7-17.5) POC Hct 44 % % (40-51) Departure - Departure Disposition: Home, Routine, Self-Care Clinical Impression: Chest pain Condition: Good Instructions: Chest Pain (ED) Additional Instructions: Please avoid using Adderall. You should follow up with the life underwriter as as planned next month. Referrals: Nadeem Almendarez MD [Primary Care Provider] - As per Instructions Gio Mckeon MD [Medical Doctor] - As per Instructions
[2017-11-07 03:25] VITALS: BP 128/87
--- NOTE | 2017-11-07 06:48 | CPEKG ---
Test Reason : OPEN Blood Pressure : / mmHG Vent. Rate : 090 BPM Atrial Rate : 089 BPM P-R Int : 165 ms QRS Dur : 096 ms QT Int : 352 ms P-R-T Axes : 060 027 064 degrees QTc Int : 431 ms Sinus rhythm Confirmed by Oly Seals ([id number]) on 11/07/2017 6:47:29 AM Referred By: Confirmed By:Oly Seals
== END 2017-11-07 03:24 | disposition home or self-care (01) ==
DX: R07.9 Chest pain, unspecified (principal)
CPT/HCPCS: 82435-PO; 82565-PO; 82947-PO; 84132-PO; 84295-PO; 84484-PO; 84520-PO; 85014-PO

== ENCOUNTER 2017-11-12 14:37 | Emergency (ER) | payer MEDICAID ==
--- NOTE | 2017-11-12 14:57 | EDPHY ---
H & P Stated Complaint: CP, dizzy, SOB, agitated Time Seen by Provider: 11/12/17 14:54 HPI/ROS: CHIEF COMPLAINT: Tachycardia, dyspnea, agitation HISTORY OF PRESENT ILLNESS: The patient presents the ED with tachycardia, dyspnea and agitation. The patient's symptoms began at work today after he took an Adderall tablet. The patient has a history of a arrhythmia and is currently being evaluated by Cardiology. He has number of ED visits for tachycardia and chest pain. The patient reports that he is been working heavily. He endorses symptoms of poor sleep. He denies asymmetric calf pain or swelling. He denies pleuritic chest pain. REVIEW OF SYSTEMS: A comprehensive 10 point review of systems is otherwise negative aside from elements mentioned in the history of present illness. Source: Patient Exam Limitations: No limitations - Personal History Current Tetanus/Diphtheria Vaccine: Unsure Current Tetanus Diphtheria and Acellular Pertussis (TDAP): Unsure - Medical/Surgical History Hx Asthma: Yes Hx Chronic Respiratory Disease: No Hx Diabetes: No Hx Cardiac Disease: No Hx Renal Disease: No Hx Cirrhosis: No Hx Alcoholism: No Hx HIV/AIDS: No Hx Splenectomy or Spleen Trauma: No Other PMH: PMH- HEP C, adhd, bipolar, thrush. PSH- DEYVI. Meth Abuse. "Brain injury" - Social History Smoking Status: Current every day smoker - Physical Exam Exam: General Appearance: Alert, anxious, diaphoretic Eyes: Pupils equal and round no pallor or injection ENT, Mouth: Mucous membranes moist Respiratory: There are no retractions, lungs are clear to auscultation Cardiovascular: Tachycardic Gastrointestinal: Abdomen is soft and nontender, no masses, bowel sounds normal Neurological: A&O, normal motor function, normal sensory exam, normal cranial nerves Skin: Warm and dry, no rashes Musculoskeletal: Neck is supple nontender Extremities: symmetrical, full range of motion Psychiatric: Patient is oriented X 3, there is no agitation Constitutional: Initial Vital Signs Temperature (C) 36.6 C 11/12/17 14:40 Heart Rate 155 H 11/12/17 14:40 Respiratory Rate 34 H 11/12/17 14:40 Blood Pressure 163/97 H 11/12/17 14:40 O2 Sat (%) 98 11/12/17 14:40 O2 Delivery Mode Room Air Allergies/Adverse Reactions: No Known Allergies Allergy (Verified 11/07/17 02:10) Home Medications: Medication Instructions Recorded Lorazepam 08/20/17 Doxycycline Hyclate 100 mg PO BID #14 tab 08/21/17 Adderall 10 MG (*) 11/07/17 Medical Decision Making - Diagnostics EKG Interpretation: EKG: Complete interpretation has been separately recorded in the [facility] archive. Summary impression: Sinus tachycardia, rate 147, nonspecific ST T wave changes noted ED Course/Re-evaluation: The patient presents to the ED with a sympathomimetic mediated sinus tachycardia. The patient had an IV established. He received a L of normal saline. He received 2 mg of IV Ativan. I reviewed the patient's past medical records. The patient's initial troponin is negative. The remainder of the patient's electrolytes and CBC are also unremarkable. The patient became upset that he was not receiving additional Ativan and reportedly left without discharge instructions. I was not notified by nursing staff the patient left before his treatment was completed. I attempted to contact the patient without success. Objectively there is no evidence of acute ischemia in the emergency department. He presented to the ED with a tachycardia likely from Adderall use. The patient left before a complete evaluation for other causes of chest pain such as pulmonary embolism or aortic dissection could be explored. Differential Diagnosis: Differential diagnosis considered includes myocardial infarction, pericarditis, aortic dissection, pulmonary embolism - Data Points Laboratory Results: Laboratory Results 11/12/17 15:00 11/12/17 15:00 11/12/17 11/12/17 11/12/17 15:09 15:00 15:00 WBC 6.71 10^3/uL 10^3/uL (3.80-9.50) RBC 5.43 10^6/uL 10^6/uL (4.40-6.38) Hgb 16.8 g/dL g/dL (13.7-17.5) Hct 46.8 % % (40.0-51.0) MCV 86.2 fL fL (81.5-99.8) MCH 30.9 pg pg (27.9-34.1) MCHC 35.9 g/dL g/dL (32.4-36.7) RDW 12.0 % % (11.5-15.2) Plt Count 137 10^3/uL L 10^3/uL (150-400) MPV 9.7 fL fL (8.7-11.7) Neut % (Auto) 50.2 % % (39.3-74.2) Lymph % (Auto) 37.0 % % (15.0-45.0) Gonzales % (Auto) 11.0 % % (4.5-13.0) Eos % (Auto) 1.3 % % (0.6-7.6) Baso % (Auto) 0.4 % % (0.3-1.7) Nucleat RBC Rel Count 0.0 % % (0.0-0.2) Absolute Neuts (auto) 3.36 10^3/uL 10^3/uL (1.70-6.50) Absolute Lymphs (auto) 2.48 10^3/uL 10^3/uL (1.00-3.00) Absolute Monos (auto) 0.74 10^3/uL 10^3/uL (0.30-0.80) Absolute Eos (auto) 0.09 10^3/uL 10^3/uL (0.03-0.40) Absolute Basos (auto) 0.03 10^3/uL 10^3/uL (0.02-0.10) Absolute Nucleated RBC 0.00 10^3/uL 10^3/uL (0-0.01) Immature Gran % 0.1 % % (0.0-1.1) Immature Gran # 0.01 10^3/uL 10^3/uL (0.00-0.10) Sodium 135 mEq/L mEq/L (135-145) Potassium 4.0 mEq/L mEq/L (3.3-5.0) Chloride 96 mEq/L L mEq/L (97-110) Carbon Dioxide 27 mEq/l mEq/l (22-31) Anion Gap 12 mEq/L mEq/L (8-16) BUN 15 mg/dL mg/dL (7-23) Creatinine 1.0 mg/dL mg/dL (0.7-1.3) Estimated GFR > 60 Glucose 194 mg/dL H mg/dL (70-100) Calcium 9.4 mg/dL mg/dL (8.5-10.4) POC Troponin I 0.00 ng/mL ng/mL (0.00-0.08) Medications Given: Discontinued Medications Sodium Chloride (Ns) 1,000 mls @ 0 mls/hr IV EDNOW ONE; Wide Open PRN Reason: Protocol Stop: 11/12/17 15:02 Last Admin: 11/12/17 15:05 Dose: 1,000 mls Lorazepam (Ativan Injection) 2 mg IVP EDNOW ONE Stop: 11/12/17 15:02 Last Admin: 11/12/17 15:05 Dose: 2 mg Point of Care Test Results: Chemistry 11/12/17 15:09 POC Troponin I 0.00 ng/mL ng/mL (0.00-0.08) Departure - Departure Disposition: Against Medical Advice Clinical Impression: Chest pain, Tachycardia Referrals: Nadeem Almendarez MD [Primary Care Provider] - As per Instructions
[2017-11-12] MEDS ORDERED: LORazepam 2 MG/ML INJ IVP ONE (15:01)
[2017-11-12] MEDS ORDERED: NS 1,000 ML IV ONE (15:01)
[2017-11-12 15:37] LABS: PLATELET COUNT 137 10^3/uL (150-400)
[2017-11-12 16:19] VITALS: BP 110/58
== END 2017-11-12 16:17 | disposition left against medical advice (07) ==
DX: R06.00 Dyspnea, unspecified (principal); R00.0 Tachycardia, unspecified; B19.20 Unspecified viral hepatitis C without hepatic coma; E86.9 Volume depletion, unspecified; F17.200 Nicotine dependence, unspecified, uncomplicated
CPT/HCPCS: 84484-PO; 96374; J2060

== ENCOUNTER 2017-11-30 15:32 | Emergency (ER) | payer MEDICAID ==
[2017-11-30 15:58] VITALS: BP 124/85
== END 2017-11-30 15:55 | disposition left against medical advice (07) ==
DX: Z53.21 Procedure and treatment not carried out due to patient leaving prior to being seen by health care provider (principal)

== ENCOUNTER 2017-12-02 22:00 | Emergency (ER) | payer MEDICAID ==
[2017-12-02] MEDS ORDERED: NS 1,000 ML IV ONE (22:13)
--- NOTE | 2017-12-02 22:13 | EDPHY ---
H & P Stated Complaint: R side chest pain, worse when taking deep breathes, hx MRSA pnuemonia Time Seen by Provider: 12/02/17 22:13 HPI/ROS: HPI CHIEF COMPLAINT: Right-sided discomfort in right lateral and posterior chest, right back HISTORY OF PRESENT ILLNESS: 42-year-old male who I am very familiar with, presents emergency room stating that approximately 2 hr ago developed right- sided discomfort in his chest. He states sharp stabbing pain he was moving fire would and lifting heavy things and developed some pain in the right side lateral aspect of the right chest and right posterior back. He describes sharp stabbing. It is worse when he takes deep breath in. Additionally we touch his right back posteriorly paravertebral right-sided in 1 focal area he has discomfort. He denies having an injury from lifting heavy wood. He states he has been sick recently with a cough and runny nose. He denies any left-sided chest pain or chest pressure denies shortness of breath denies fever. He does smoke tobacco. Denies current meth use. Past Medical History: History of hepatitis-C, bipolar disorder, attention deficit hyperactivity disorder, MRSA, numerous ER visits for chest pain Past Surgical History: Cholecystectomy Social History: History of methamphetamine abuse. Family History: Noncontributory ROS REVIEW OF SYSTEMS: 10 Systems were reviewed and negative with the exception of the elements mentioned in the history of present illness. Exam Constitutional triage nursing summary reviewed, vital signs reviewed, awake/ alert. Eyes normal conjunctivae and sclera, EOMI, PERRLA. HENT normal inspection, atraumatic, moist mucus membranes, no epistaxis, neck supple/ no meningismus, no raccoon eyes. Respiratory clear to auscultation bilaterally, normal breath sounds, no respiratory distress, no wheezing. Cardiovascular rate normal, regular rhythm, no murmur, no edema, distal pulses normal. Gastrointestinal soft, non-tender, no rebound, no guarding, normal bowel sounds, no distension, no pulsatile mass. Genitourinary no CVA tenderness. Musculoskeletal no midline vertebral tenderness, full range of motion, no calf swelling, no tenderness of extremities, no meningismus, good pulses, neurovascularly intact. Skin pink, warm, & dry, no rash, skin atraumatic. Neurologic awake, alert and oriented x 3, AAOx3, moves all 4 extremities equally, motor intact, sensory intact, CN II-XII intact, normal cerebellar, normal vision, normal speech. Psychiatric normal mood/affect. Heme/Lymph/Immune no lymphadenopathy. Differential diagnosis includes but is not limited to: Pleurisy, ACS, atypical chest pain, pneumothorax, pneumonia, pulmonary embolism, aortic dissection, congestive heart failure, tumor, musculoskeletal pain, esophageal pain, GERD, peptic ulcer disease, pancreatitis Medical Decision Making: Plan for this patient right-sided sharp stabbing chest pain after moving fire wood and coughing, will perform two view chest x- ray to rule pneumonia, pneumothorax, obtain EKG, troponin. Is also musculoskeletal on exam. Will give anti-inflammatory pain medicine see if this improves. Re-evaluation: EKG interpretation by me on record in [facility] system. Impression time of EKG 2210: Sinus tach rate of 101 without any signs of acute ischemia. Specifically no ST elevation no ST depression. When I compare this to his old EKG dated November 07 is very similar morphology. Patient's chest x-ray reviewed negative for acute cardiopulmonary disease. Patient's troponin noted be negative. Patient's D-dimer is slightly positive. In the setting of right-sided sharp stabbing pleuritic chest pain will proceed with CT angiogram of the chest rule out PE. CT angiogram of the chest is negative for acute pulmonary embolism or pneumothorax. Unremarkable CT chest. Scar at the right lung base similar to previous. Called to me by Dr. Longo.. 0107: Patient re-evaluated this time. Patient is sleeping. I did have to wake him. He has no complaints. Resting comfortably. In no acute distress. Denies any chest pain shortness of breath. Troponin noted to be negative. EKG is reviewed and is very similar to his previous EKG. Patient CT angiogram was performed due to the positive D-dimer. This shows no evidence of PE, no evidence of pneumothorax. No pneumonia. D-dimer is mostly positive due to methamphetamine use. Patient's drug screen is positive for meth. Patient admits to doing this. Initially he denies this. I highly recommend he refrain from doing methamphetamine is very dangerous. He understands this. Source: Patient - Personal History Current Tetanus Diphtheria and Acellular Pertussis (TDAP): Unsure - Medical/Surgical History Hx Asthma: Yes Hx Chronic Respiratory Disease: No Hx Diabetes: No Hx Cardiac Disease: No Hx Renal Disease: No Hx Cirrhosis: No Hx Alcoholism: No Hx HIV/AIDS: No Hx Splenectomy or Spleen Trauma: No Other PMH: PMH- HEP C, adhd, bipolar, thrush. PSH- DEYVI. Meth Abuse. "Brain injury" - Social History Smoking Status: Current every day smoker Constitutional: Initial Vital Signs Temperature (C) 36.7 C 12/02/17 22:02 Heart Rate 111 H 12/02/17 22:02 Respiratory Rate 19 12/02/17 22:02 Blood Pressure 147/107 H 12/02/17 22:02 O2 Sat (%) 99 12/02/17 22:02 O2 Delivery Mode Room Air Allergies/Adverse Reactions: No Known Allergies Allergy (Verified 12/02/17 22:02) Home Medications: Medication Instructions Recorded Lorazepam 08/20/17 Doxycycline Hyclate 100 mg PO BID #14 tab 08/21/17 Adderall 10 MG (*) 11/07/17 Amlodipine Besylate 12/02/17 Medical Decision Making - Diagnostics Imaging Results: Imaging Impressions Chest X-Ray 12/02/17 22:13 Impression: Clear lungs. No acute process. Chest/Thorax CTA 12/02/17 22:51 Impression: 1. No evidence of thrombopulmonary embolic disease. 2. Clear lungs. Benign linear scarring right lower lobe unchanged since October 2016. Findings discussed with Emergency Department physician, Juan Dia MD at 12/02/2017 23:55. - Data Points Laboratory Results: Laboratory Results 12/02/17 21:22 12/02/17 21:22 12/02/17 12/02/17 12/02/17 23:50 22:27 21:22 WBC RBC Hgb Hct MCV MCH MCHC RDW Plt Count MPV Neut % (Auto) Lymph % (Auto) Alexander % (Auto) Eos % (Auto) Baso % (Auto) Nucleat RBC Rel Count Absolute Neuts (auto) Absolute Lymphs (auto) Absolute Monos (auto) Absolute Eos (auto) Absolute Basos (auto) Absolute Nucleated RBC Immature Gran % Immature Gran # PT INR APTT D-Dimer Sodium 138 mEq/L mEq/L (135-145) Potassium 5.1 mEq/L H mEq/L (3.3-5.0) Chloride 102 mEq/L mEq/L (97-110) Carbon Dioxide 27 mEq/l mEq/l (22-31) Anion Gap 9 mEq/L mEq/L (6-14) BUN 20 mg/dL mg/dL (7-23) Creatinine 1.0 mg/dL mg/dL (0.7-1.3) Estimated GFR > 60 Glucose 134 mg/dL H mg/dL (70-100) Calcium 9.9 mg/dL mg/dL (8.5-10.4) Magnesium 2.0 mg/dL mg/dL (1.6-2.3) Total Bilirubin 0.5 mg/dL mg/dL (0.1-1.4) Conjugated Bilirubin 0.3 mg/dL mg/dL (0.0-0.5) Unconjugated Bilirubin 0.2 mg/dL mg/dL (0.0-1.1) AST 87 IU/L H IU/L (17-59) ALT 126 IU/L H IU/L (21-72) Alkaline Phosphatase 59 IU/L IU/L (38-126) POC Troponin I 0.00 ng/mL ng/mL (0.00-0.08) NT-Pro-B Natriuret Pep 26 pg/mL pg/mL (0-125) Total Protein 7.9 g/dL g/dL (6.3-8.2) Albumin 4.5 g/dL g/dL (3.5-5.0) Lipase 131 IU/L IU/L (23-300) Urine Opiates Screen NEGATIVE (NEGATIVE) Urine Barbiturates NEGATIVE (NEGATIVE) Ur Phencyclidine Scrn NEGATIVE (NEGATIVE) Ur Amphetamine Screen NON-NEGATIVE H (NEGATIVE) U Benzodiazepines Scrn NEGATIVE (NEGATIVE) Urine Cocaine Screen NEGATIVE (NEGATIVE) U Marijuana (THC) Screen NEGATIVE (NEGATIVE) 12/02/17 12/02/17 21:22 21:22 WBC 8.30 10^3/uL 10^3/uL (3.80-9.50) RBC 5.41 10^6/uL 10^6/uL (4.40-6.38) Hgb 16.9 g/dL g/dL (13.7-17.5) Hct 47.0 % % (40.0-51.0) MCV 86.9 fL fL (81.5-99.8) MCH 31.2 pg pg (27.9-34.1) MCHC 36.0 g/dL g/dL (32.4-36.7) RDW 11.9 % % (11.5-15.2) Plt Count 127 10^3/uL L 10^3/uL (150-400) MPV 10.2 fL fL (8.7-11.7) Neut % (Auto) 61.9 % % (39.3-74.2) Lymph % (Auto) 25.1 % % (15.0-45.0) Alexander % (Auto) 9.4 % % (4.5-13.0) Eos % (Auto) 2.7 % % (0.6-7.6) Baso % (Auto) 0.5 % % (0.3-1.7) Nucleat RBC Rel Count 0.0 % % (0.0-0.2) Absolute Neuts (auto) 5.15 10^3/uL 10^3/uL (1.70-6.50) Absolute Lymphs (auto) 2.08 10^3/uL 10^3/uL (1.00-3.00) Absolute Monos (auto) 0.78 10^3/uL 10^3/uL (0.30-0.80) Absolute Eos (auto) 0.22 10^3/uL 10^3/uL (0.03-0.40) Absolute Basos (auto) 0.04 10^3/uL 10^3/uL (0.02-0.10) Absolute Nucleated RBC 0.00 10^3/uL 10^3/uL (0-0.01) Immature Gran % 0.4 % % (0.0-1.1) Immature Gran # 0.03 10^3/uL 10^3/uL (0.00-0.10) PT 12.9 SEC SEC (12.0-15.0) INR 0.95 (0.83-1.16) APTT 27.0 SEC SEC (23.0-38.0) D-Dimer 0.52 ug/mLFEU H ug/mLFEU (0.00-0.50) Sodium Potassium Chloride Carbon Dioxide Anion Gap BUN Creatinine Estimated GFR Glucose Calcium Magnesium Total Bilirubin Conjugated Bilirubin Unconjugated Bilirubin AST ALT Alkaline Phosphatase POC Troponin I NT-Pro-B Natriuret Pep Total Protein Albumin Lipase Urine Opiates Screen Urine Barbiturates Ur Phencyclidine Scrn Ur Amphetamine Screen U Benzodiazepines Scrn Urine Cocaine Screen U Marijuana (THC) Screen Medications Given: Discontinued Medications Sodium Chloride (Ns) 1,000 mls @ 0 mls/hr IV EDNOW ONE; Wide Open PRN Reason: Protocol Stop: 12/02/17 22:14 Last Admin: 12/02/17 22:17 Dose: 1,000 mls Ketorolac Tromethamine (Toradol) 15 mg IVP EDNOW ONE Stop: 12/02/17 22:19 Last Admin: 12/02/17 22:42 Dose: 15 mg Point of Care Test Results: Chemistry 12/02/17 22:27 POC Troponin I 0.00 ng/mL ng/mL (0.00-0.08) Departure - Departure Disposition: Home, Routine, Self-Care Clinical Impression: Methamphetamine abuse, Back pain Condition: Good Instructions: Methamphetamine Abuse (ED), Acute Low Back Pain (ED) Additional Instructions: 1. Rest. 2. Anti-inflammatory pain medicine. 3. Return if worse. Referrals: Nadeem Almendarez MD [Primary Care Provider] - As per Instructions
[2017-12-02] MEDS ORDERED: KETOROLAC 15 MG/1 ML SDV IVP ONE (22:18)
[2017-12-02 22:38] LABS: INR 0.95 (0.83-1.16); PROTIME(PATIENT) 12.9 SEC (12.0-15.0)
[2017-12-02 22:40] LABS: PLATELET COUNT 127 10^3/uL (150-400)
[2017-12-02] MEDS ORDERED: IOPAMIDOL (ISOVUE 370) 100 ML BTL IV ONE (23:00)
[2017-12-03 01:20] VITALS: BP 136/70
--- NOTE | 2017-12-03 23:58 | CPEKG ---
Test Reason : OPEN Blood Pressure : / mmHG Vent. Rate : 101 BPM Atrial Rate : 103 BPM P-R Int : 152 ms QRS Dur : 099 ms QT Int : 332 ms P-R-T Axes : 047 031 060 degrees QTc Int : 431 ms Sinus tachycardia Confirmed by Juan Dia ([id number]) on 12/03/2017 11:57:52 PM Also confirmed by Juan Dia ([id number]) on 12/03/2017 11:58:04 PM Referred By: Confirmed By:Juan Dia
== END 2017-12-03 01:20 | disposition home or self-care (01) ==
DX: F15.10 Other stimulant abuse, uncomplicated (principal); M54.9 Dorsalgia, unspecified; E86.9 Volume depletion, unspecified; F17.200 Nicotine dependence, unspecified, uncomplicated
CPT/HCPCS: 80305; 84484-PO; 96374; J1885; Q9967

== ENCOUNTER 2017-12-22 10:10 | Emergency (ER) | payer MEDICAID ==
--- NOTE | 2017-12-22 10:31 | EDPHY ---
H & P Stated Complaint: meth withdrawal/palpitations - Personal History Current Tetanus/Diphtheria Vaccine: Yes - Medical/Surgical History Hx Asthma: Yes Hx Chronic Respiratory Disease: No Hx Diabetes: No Hx Cardiac Disease: Yes Hx Renal Disease: No Hx Cirrhosis: No Hx Alcoholism: No Hx HIV/AIDS: No Hx Splenectomy or Spleen Trauma: No Other PMH: PMH- HEP C, adhd, bipolar, thrush. PSH- DEYVI. Meth Abuse. "Brain injury" - Social History Smoking Status: Current every day smoker Time Seen by Provider: 12/22/17 10:21 HPI/ROS: CHIEF COMPLAINT: "I'm just all jumpy and stuff" HISTORY OF PRESENT ILLNESS: 42-year-old male with history of methamphetamine use, last smoked methamphetamine 2 days ago, drove himself to the ER stating that last night when he was trying to sleep he would wake up and feel "jumpy" and experience intermittent left-sided palpitations He currently has a Holter monitor in place him in place for 3 weeks from [facility]. No syncope or near syncope. No headache. No dyspnea. His prior history of emergency department visits for chest pain including negative CT angiography of the chest. PRIMARY CARE PROVIDER: REVIEW OF SYSTEMS: 10 systems reviewed and negative with the exception of the elements mentioned in the history of present illness PAST MEDICAL & SURGICAL HISTORY: [ Cholecystectomy. Hepatitis-C. Bipolar disorder. Attention deficit hyperactivity disorder. SOCIAL HISTORY: History of methamphetamine abuse, last smoked 2 days ago FAMILY HISTORY: No family history of premature artery disease or coagulopathic disorder PHYSICAL EXAM (Prior to examination, patient consented to physical exam, hands were washed and my usual and customary physical exam procedures followed) 1) GENERAL: Well-developed, well-nourished, alert and oriented. Appears anxious. 2) HEAD: Normocephalic, atraumatic 3) HEENT: Pupils equal, round, reactive to light bilaterally. Sclera anicteric. 4) NECK: Full range of motion, no meningeal signs. No Carotid bruit 5) LUNGS: Clear auscultation bilaterally, no wheezes, no rhonchi, no retractions. No Chest wall pain . No lesions no vesicles 6) HEART: Regular rate and rhythm, no murmur, no heave, no gallop. 7) ABDOMEN: No guarding, no rebound, no focal tenderness, negative McBurney's, negative Johnston's, negative Rovsing's, negative peritoneal sign, 8) MUSCULOSKELETAL: Moving all extremities, no focal areas of tenderness, no obvious trauma. No peripheral edema or discoloration. Negative Homans no cord 9) BACK: No CVA tenderness, no midline vertebral tenderness, no fluctuance, no step-off, no obvious trauma, no visual or palpable abnormality. 10) SKIN: No rash, no petechiae. 11) Psychiatric: Patient is oriented X 3, there is no agitation. DIFFERENTIAL DIAGNOSIS: In no particular order, including but not limited to myocardial ischemia, pulmonary embolus, chest wall pain, pleural inflammation and pulmonary infectious causes. (Trey Kern) Constitutional: Initial Vital Signs Temperature (C) 36.4 C 12/22/17 10:14 Heart Rate 92 12/22/17 10:14 Respiratory Rate 18 12/22/17 10:14 Blood Pressure 149/92 H 12/22/17 10:14 O2 Sat (%) 99 12/22/17 10:14 O2 Delivery Mode Room Air Allergies/Adverse Reactions: No Known Allergies Allergy (Verified 12/22/17 10:19) Home Medications: Medication Instructions Recorded Lorazepam 08/20/17 Doxycycline Hyclate 100 mg PO BID #14 tab 08/21/17 Adderall 10 MG (*) 11/07/17 Amlodipine Besylate 12/02/17 Medical Decision Making - Diagnostics EKG Interpretation: EKG: Complete interpretation has been separately recorded in the [employer] archive. Summary impression: Sinus rhythm, no ischemic changes noted (Marck Cuevas) ED Course/Re-evaluation: Old medical records were reviewed by myself. Discussed case with primary supervising physician Dr. Marck Cuevas in the ER who is familiar with this patient. Patient has prior emergency department visit for similar complaints. At this time will hold on further diagnostic studies as we think that acute coronary syndrome , pulmonary pathology such as pulmonary embolus or pneumothorax is less than likely this patient. Strongly recommended he discontinue methamphetamine use. Strongly recommend he follow up with Sukumar wong per his upcoming appointment. I explained this to him. He feels comfortable with this plan. All questions and concerns addressed by myself. My usual and customary discharge precautions and instructions provided. (Trey Kern) Other Provider: PHYSICIAN DOCUMENTATION: The patient was evaluated and managed by the Physician Director Of Math. My co- signature indicates that I have reviewed this chart and I agree with the findings and plan of care as documented. I am the secondary supervising physician. (Marck Cuevas) Departure - Departure Disposition: Home, Routine, Self-Care Clinical Impression: Methamphetamine abuse Condition: Good Instructions: Methamphetamine (By mouth) Additional Instructions: Please stop using methamphetamine. Please follow-up at [facility] per your appointment. Seek immediate medical attention if you develop new or worsening chest pain, if you develop shortness of breath, or any other symptoms that concern you. Referrals: Erlin Cabrera MD [Medical Doctor] - 2-3 days, call for appt.
--- NOTE | 2017-12-22 10:35 | CPEKG ---
Test Reason : OPEN Blood Pressure : / mmHG Vent. Rate : 077 BPM Atrial Rate : 081 BPM P-R Int : 154 ms QRS Dur : 100 ms QT Int : 360 ms P-R-T Axes : 050 034 072 degrees QTc Int : 408 ms Sinus rhythm Confirmed by Marck Cuevas ([id number]) on 12/22/2017 10:34:59 AM Referred By: Confirmed By:Marck Cuevas
[2017-12-22 10:41] VITALS: BP 138/88
== END 2017-12-22 10:41 | disposition home or self-care (01) ==
DX: R00.2 Palpitations (principal); F15.93 Other stimulant use, unspecified with withdrawal; F31.9 Bipolar disorder, unspecified; B19.20 Unspecified viral hepatitis C without hepatic coma; F17.200 Nicotine dependence, unspecified, uncomplicated

== ENCOUNTER 2018-03-12 17:34 | Emergency (ER) | payer MEDICAID ==
--- NOTE | 2018-03-12 17:37 | EDPHY ---
HPI/HX/ROS/PE/MDM Narrative: CHIEF COMPLAINT: Chest pain while running from [employer] HPI: The patient is a 42 y/o male with a history of methamphetamine abuse who arrives via EMS in [employer] custody complaining of substernal chest pain that began while running from [employer]. This is his 11th visit to our ED for chest pain in the last year and he reported to EMS that he has a history of SVT for which he takes amlodipine. He describes his pain as sharp and stabbing in quality and says it feels the same as prior episodes of chest pain related to his anxiety. He denies associated dyspnea. He did smoke methamphetamine earlier this morning. He received 324mg aspirin from EMS prior to arrival. REVIEW OF SYSTEMS: A comprehensive 10 system review of systems is otherwise negative aside from elements mentioned in the history of present illness. PMH: Hepatitis C, methamphetamine abuse, bipolar disorder, ADHD, cholecystectomy SOCIAL HISTORY: Smoker, meth use this morning. In [employer] custody. Has been seen at [facility]. Prior medical records reviewed including ED visit for palpitations and meth use 12/22/17. PHYSICAL EXAM: General:Patient is alert, in no acute distress. ENT:Eyes are normal to inspection. ENT inspection normal. Neck: Normal inspection. Full range of motion. Respiratory:No respiratory distress. Breath sounds normal bilaterally. Cardiovascular: Regular rate and rhythm. Strong peripheral pulses. Normal cap refill. Abdomen:The abdomen is nontender to palpation. There are no peritoneal signs. Back: Normal to inspection. No tenderness to palpation. Skin: Normal color. No rash. Warm and dry. Extremities: Normal appearance. Full range of motion. Neuro: Oriented x3. Normal motor function. Normal sensory function. ED Course: This is a 42 y/o male with a history of methamphetamine abuse and frequent visits for chest pain who presents with chest pain that began while running from PD. His exam is unremarkable. Plan for POC troponin, serial EKGs, and observation. The 12 lead EKG was interpreted by myself. See hard copy and/or "tracemaster" electronic copy for interpretation. POC troponin is 0.00. Repeat EKG. The 12 lead EKG was interpreted by myself. See hard copy and/or "tracemaster" electronic copy for interpretation. Reassessed patient and discussed findings. He is feeling improved. No evidence of ACS on assessment here. He will be discharged in [employer] custody with standard care and follow up instructions. Return precautions discussed. - Data Points Laboratory Results: 03/12/18 18:04 POC Troponin I 0.00 ng/mL ng/mL (0.00-0.08) Point of Care Test Results: Chemistry 03/12/18 18:04 POC Troponin I 0.00 ng/mL ng/mL (0.00-0.08) General Time Seen by Provider: 03/12/18 17:34 Initial Vital Signs: Initial Vital Signs Temperature (C) 36.6 C 03/12/18 17:34 Heart Rate 104 H 03/12/18 17:34 Respiratory Rate 16 03/12/18 17:34 Blood Pressure 138/94 H 03/12/18 17:34 O2 Sat (%) 97 03/12/18 17:34 O2 Delivery Mode Room Air Allergies/Adverse Reactions: No Known Allergies Allergy (Verified 03/12/18 17:42) Home Medications: Medication Instructions Recorded Adderall 10 MG (*) 11/07/17 Amlodipine Besylate 12/02/17 Xanax 03/12/18 Departure - Departure Disposition: Home, Routine, Self-Care Clinical Impression: Anxiety, Methamphetamine abuse Chest pain Qualifiers: Chest pain type: other chest pain Qualified Code(s): R07.89 - Other chest pain Condition: Good Instructions: Chest Pain (ED), Methamphetamine Abuse (ED), Anxiety (ED) Additional Instructions: Avoid abuse of methamphetamine and other illicit drugs. Follow up with your advertiser. Return for worsening of condition. Referrals: Gio Mckeon MD [Medical Doctor] - As per Instructions Report Scribed for: August Yin Report Scribed by: Paradise Rogers Date of Report: 03/12/18 Time of Report: 17:42 Physician Review and Approval Statement: Portions of this note were transcribed by an ED scribe. I personally performed the history, physical exam, and medical decision making; and confirm the accuracy of the information in the transcribed note.
--- NOTE | 2018-03-12 17:58 | CPEKG ---
Test Reason : OPEN Blood Pressure : / mmHG Vent. 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
[2018-03-12 18:43] VITALS: BP 128/74
--- NOTE | 2018-03-12 20:45 | CPEKG ---
Test Reason : OPEN Blood Pressure : / mmHG Vent. Rate : 102 BPM Atrial Rate : 101 BPM P-R Int : 158 ms QRS Dur : 099 ms QT Int : 349 ms P-R-T Axes : 064 029 074 degrees QTc Int : 455 ms Sinus tachycardia Probable anteroseptal infarct, old Confirmed by August Yin ([id number]) on 03/12/2018 8:45:12 PM Referred By: August Yin Confirmed By:August Yin
== END 2018-03-12 18:43 | disposition home or self-care (01) ==
LOC: EDUNIT#
DX: R07.9 Chest pain, unspecified (principal); F41.9 Anxiety disorder, unspecified; B19.20 Unspecified viral hepatitis C without hepatic coma; F15.20 Other stimulant dependence, uncomplicated; F17.200 Nicotine dependence, unspecified, uncomplicated
CPT/HCPCS: 84484-ER

== ENCOUNTER 2018-05-28 23:05 | Emergency (ER) | payer MEDICAID ==
--- NOTE | 2018-05-28 23:29 | EDPHY ---
General - History Smoking Status: Heavy smoker Time Seen by Provider: 05/28/18 23:28 Narrative: CLINICAL IMPRESSION: Left thigh contusion, possible small nondisplaced mid femur fracture ASSESSMENT/PLAN: Patient is a 42-year-old male who presents with complaint of left thigh pain after sustaining a mechanical fall hitting his left thigh on a concrete barrier. Patient is nontoxic-appearing, he is in no acute distress on arrival. Physical examination reveals tenderness to palpation with small abrasion and ecchymosis to the mid lateral left thigh. The compartment is soft. X-ray reviewed by myself and Dr. Seals, patient with faint linear abnormality with associated cortical abnormality along the mid femur. There was no evidence of open or displaced fracture, dislocation, compartment syndrome, DVT or neurovascular compromise. His history and physical examination is most consistent with left thigh contusion with concern for small underlying nondisplaced femur fracture as he is tender at the site of radiographic abnormality. Final radiology report is still pending at this time. The patient was provided ice, he was given ibuprofen with mild improvement of his pain. He will otherwise continue Tylenol and/or ibuprofen at home. He will be treated conservatively with nonweightbearing status, he was provided crutches and was able to mobilize with crutches without difficulty. He is well established with [facility] and will call to schedule follow-up; he was also provided an orthopedic referral and understands the importance of calling Thursday morning to schedule appointment for repeat examination. Return precautions discussed-patient to return to the emergency Department for significantly worsening or uncontrolled pain, significant swelling, numbness or tingling of the extremity, paleness or coolness of extremity, fever or for any other concerning symptom. The patient verbalizes understanding and he is in agreement with this plan. DIFFERENTIAL DX: Differential diagnosis including but not limited to and in no particular order contusion, fracture, compartment syndrome CHIEF COMPLAINT: Left thigh pain HPI: Patient is a 42-year-old male who presents to the emergency department complaining of left thigh pain after sustaining a fall landing on a concrete barrier. 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 he reports he was trying to pull a tree branch down when he lost his balance causing him to fall into a concrete barrier. He hit his left thigh directly onto the concrete barrier. He did experience pain however kept working. He has been able to ambulate however this does increases pain. He took a couple of aspirin prior to arrival. He denies any neck or back pain. He denies any numbness or tingling of the extremity. He denies any significant swelling. He denies any other concern or complaint. PAST MEDICAL HISTORY: Attention deficit hyperactivity disorder Family History: Not contributory Social History: Current smoker, remote illicit drug use ROS: A full 10 point review of systems was negative except for those mentioned in HPI. PHYSICAL EXAM: General Appearance: Alert, well-appearing, no acute distress. HENT: Normocephalic, atraumatic. External ears are normal. Nares are clear, mucosa is pink. Oropharynx is clear. Eyes: PERRLA, EOMI Conjunctiva pink, no pallor or injection. Neck: Supple, nontender, no lymphadenopathy, no midline pain, FROM, no meningismus. Respiratory: There are no retractions, lungs are clear to auscultation. Cardiac: Regular rate and rhythm, no murmurs or gallops. Gastrointestinal: Abdomen is soft, nontender, bowel sounds normal, no masses/ hernia, no rigidity, guarding or focal peritoneal findings. Skin: Warm, dry, no rashes, no nodules on palpation. Upper Extremities: Intact distal pulses, Full range of motion intact, no tenderness, no ecchymosis or edema Lower Extremities: Right lower extremity unremarkable. Intact distal pulses, No edema, No tenderness, No cyanosis, full range of motion intact. Left lower extremity with tenderness to palpation mid lateral thigh with overlying ecchymosis and abrasion. Patient with limp with ambulation. His thigh compartment is soft. His knee is nontender with full range of motion. Left lower extremity is otherwise unremarkable. 2+ dorsalis pedis, sensation intact distally. MEDICAL DECISION MAKING: Patient was seen independently. Secondary supervising physician at time of evaluation was Dr. Seals, she did not evaluate this patient however we reviewed the x-ray together. Diagnosis: Left thigh pain. New, requires workup Summary: See Assessment and Plan for summary of ED visit Clinical lab tests: Not applicable. Independent visualization of images, tracing, or specimens: Yes. Decision to obtain medical records or history from someone other than the patient: No Review / Summarize previous medical records: Yes Discussed patient with another provider: Yes, Dr. Seals Patient Progress: Stable, discharge. (Jenn Yañez) PHYSICIAN DOCUMENTATION: The patient was evaluated and managed by the Physician Fire Fighters Dispatcher. My co- signature indicates that I have reviewed this chart and I agree with the findings and plan of care as documented. I am the secondary supervising physician. (Oly Seals) - Objective Vital Signs: Initial Vital Signs Temperature (C) 37.2 C 05/28/18 23:13 Heart Rate 100 05/28/18 23:13 Respiratory Rate 16 05/28/18 23:13 Blood Pressure 134/93 H 05/28/18 23:13 O2 Sat (%) 97 05/28/18 23:13 O2 Delivery Mode Room Air Allergies/Adverse Reactions: No Known Allergies Allergy (Verified 03/12/18 17:42) Home Medications: Medication Instructions Recorded Adderall 10 MG (*) 11/07/17 Xanax 03/12/18 LaMICtal 05/28/18 Medications Given: Discontinued Medications Ibuprofen (Motrin) 600 mg PO EDNOW ONE Stop: 05/28/18 23:45 Last Admin: 05/28/18 23:46 Dose: 600 mg Departure - Departure Disposition: Home, Routine, Self-Care Clinical Impression: Thigh pain Qualifiers: Laterality: left Qualified Code(s): M79.652 - Pain in left thigh Condition: Good Instructions: Leg Pain (ED) Additional Instructions: DISCHARGE INSTRUCTIONS FROM YOUR DOCTOR Thank you for visiting our emergency department today. Please keep in mind that discharge from the emergency department does not mean that there is nothing wrong - it simply means that we have not identified an emergency condition that requires further evaluation or treatment in the hospital. You should always plan to follow up with primary care for re-evaluation of your condition in the next 2-3 days. Please call Orthopedic surgery, you have been provided a referral. Schedule an appointment to be seen next week. Rest, ice (on and off), elevate the leg as much possible above the level of the heart to decrease pain and swelling. Wear the Calderon for compression, do not bear weight, use your crutches until follow -up with Orthopedic surgery. Your x-ray results are still pending at this time, on our review there is a possible small fracture of your femur. For pain, Ibuprofen 400 mg every 6 hours. Do not exceed 2400 mg of ibuprofen in 24 hours. Stop taking this if it upsets her stomach. Tylenol 500 mg every 6 hours. Do not exceed 3000 mg in a 24-hour period. Continue your regular medications as prescribed. Return for increased pain or swelling, numbness, tingling or foot or toes, calf pain, paleness or coolness of the foot or toes or for any worsening or worrisome symptoms. People present with illnesses and injuries in different ways, and it is always possible that we have missed something. You may always return for re-evaluation if symptoms worsen or if they are not improving or if you develop new/different symptoms. Again, thank you for choosing our emergency department. We hope that you feel better. Referrals: Katherine Beth PAC [Primary Care Provider] - 2-3 days without fail Saji Casper MD [Medical Doctor] - 2-3 days, call for appt.
[2018-05-28] MEDS ORDERED: IBUPROFEN 600 MG TAB PO ONE (23:44)
[2018-05-29 00:51] VITALS: BP 140/89
== END 2018-05-29 00:50 | disposition home or self-care (01) ==
DX: M79.652 Pain in left thigh (principal)